=== PATIENT | female | born 1935 | race Caucasian/White ===

== ENCOUNTER → 2016-08-14 | Outpatient (REF) | payer MEDICARE | LOC: M LAB REF 17:09 | PROVIDERS: ATTEND Internal Medicine | DX: R42 Dizziness and giddiness (principal) ==

== ENCOUNTER → 2017-11-21 | Outpatient (REF) | payer MEDICARE ==
[2017-11-22 13:54] LABS: FERRITIN 177 NG/ML (8-252); IRON (FE) 102 UG/DL (50-170); PERCENT SATURATION 32.3 % (13.2-45.0); TOTAL IRON BINDING CAPACITY 316 UG/DL (250-450)
== END ==
LOC: M LAB REF 13:16
DX: D64.9 Anemia, unspecified (principal)
CPT/HCPCS: 83550

== ENCOUNTER → 2018-07-14 | Outpatient (REF) | payer MEDICARE | LOC: M LAB REF 16:44 | PROVIDERS: ATTEND Internal Medicine | DX: N39.0 Urinary tract infection, site not specified (principal) ==

== ENCOUNTER → 2020-08-12 | Outpatient (CLI) | payer MEDICARE ==
--- NOTE | 2020-08-12 15:08 | REP ---
INDICATION: SOB COMPARISON: 03/02/2019. TECHNIQUE: PA/Lateral FINDINGS: Moderate cardiomegaly is unchanged. The mediastinal silhouette is unchanged, with calcification and tortuosity of the thoracic aorta. There are scattered bilateral fibrotic changes which are stable. No definite superimposed acute infiltrate is seen. There is diffuse osteopenia. There are degenerative changes of the spine. There is a stable mild compression deformity of T5 and a stable moderate compression deformity of T8. There is new moderate compression deformity of the T6 vertebral body. IMPRESSION: Stable moderate cardiomegaly and chronic fibrotic changes. No definite superimposed acute infiltrate. There is a new moderate compression deformity of the T6 vertebral body compared to the prior study. <Electronically signed by Rubio Tidwell > 08/12/20 [id number]
== END ==
LOC: M WUC 14:35
PROVIDERS: ATTEND Internal Medicine
DX: R06.02 Shortness of breath (principal); I51.7 Cardiomegaly

== ENCOUNTER → 2020-12-07 | Outpatient (REF) | payer MEDICARE ==
[~2020-12-07] MED LIST: DILT240C83 PO; GABA-1171 PO; LEVO150T7 PO; MECL-86 PO; PARO5TAB PO; SPIR-10 PO; WARF-18 PO
== END ==
LOC: M LAB REF 09:53
PROVIDERS: ATTEND Internal Medicine
DX: D64.9 Anemia, unspecified (principal)

== ENCOUNTER → 2020-12-21 | Outpatient (CLI) | payer MEDICARE | LOC: M LABSMTC 09:09 | PROVIDERS: ATTEND Anesthesiology | DX: Z01.812 Encounter for preprocedural laboratory examination (principal) ==

== ENCOUNTER 2020-12-23 08:15 | Day surgery (SDC) | payer MEDICARE ==
[~2020-12-23] VITALS: Ht 160 cm; Wt 64.9 kg
[~2020-12-23 08:15] MED LIST changes: +BSS IRR 500ML/OMIDRIA 4ML IRR BAG (OR ONLY) As Ordered ONE; +BSS IRR 500ML/OMIDRIA 4ML IRR BAG (OR ONLY) IO ONE; +CEFUROXIME 1MG/0.1ML INTRACAMERAL INJ As Ordered ONE; +CEFUROXIME 1MG/0.1ML INTRACAMERAL INJ ICAM ONE; +DUOVISC (0.50ML VISCOAT/0.85ML PROVISC) OPHTH KIT As Ordered ONE; +LIDOCAINE 1% SDV 5ML VIAL As Ordered ONE; +MIDAZOLAM INJ 2MG/2ML VIAL (J2250 PER 1MG) As Ordered ONE; +OFLOXACIN 0.3 % (OCUFLOX) OPTH SOL 5ML OD SCH; +PHENYLEPHRINE 2.5% OPHTH SOL 2ML OD SCH; +PROPARACAINE 0.5% OPHTH SOL 15ML OD ONE; +TROPICAMIDE 1% OPHTH SOLN 2ML OD SCH; +fentaNYL 100 MCG/2 ML INJECTION (J3010) As Ordered ONE
[2020-12-23 12:45] VITALS: BP 136/65
--- NOTE | 2020-12-23 15:45 | ROOPDOC ---
[facility] Report Of Operation Report of Operation DATE OF PROCEDURE: 12/23/20 PREPROCEDURE DIAGNOSES: Mature cataract right eye. POSTPROCEDURE DIAGNOSES: Same. PROCEDURE PERFORMED: Phacoemulsification cataract extraction implantation intraocular lens right eye. SURGEON: Lauro Marx MD PLUMBING INSTALLER: None ANESTHESIA: MAC. ESTIMATED BLOOD LOSS: Approximately 0 cc mL. COMPLICATIONS: None. LENS: 12.0. diopters SPECIMENS REMOVED: None INDICATIONS: Patient experienced decreased vision associated with cataract formation. Slit-lamp examination confirmed the diagnosis. Informed consent was obtained for removal of the cataract and placement of intraocular lens. PROCEDURE NOTE: Patient was identified in the holding room and the operative eye was marked. Patient was wheeled spine the OR suite and positioned on the stretcher. The lids lashes and periocular face of the operative eye were prepped with 5% povidone iodine. The lashes were taped with a Tegaderm dressing. A speculum was placed in the operative eye. 1 mm side-port was created. 1% preservative-free lidocaine was injected. Viscoat was injected. A 2.6 mm stepped groove clear cornea incision was made temporally. A bent cystotome needle and Utrata forceps were used to fashion a continuous curvilinear capsulorhexis. BSS was used to hydrodissect. The lens was found to rotate freely. The lens was phacoemulsified using a divide and conquer technique. Residual cortex was removed with the I/A. Provisc was injected to expand the capsular bag. The lens was injected using the lens delivery system and positioned with a Sesar hook. Residual viscoelastic was removed with the I/A. BSS was used to hydrate the corneal wound. Antibiotic prophylaxis was injected. The speculum was removed from the eye. A shield was taped over the eye. The patient was sent in excellent condition to the recovery room with a shield. LAURO MARX M.D. Dec 23, 2020 15:45
[2021-01-24] MEDS ORDERED: CALC500T68 PO (10:50)
[2021-01-24] MEDS ORDERED: VITMTA PO (10:50)
== END 2020-12-23 12:58 | disposition home or self-care (01) ==
LOC: M SDC 08:15
PROVIDERS: ATTEND Ophthalmology
DX: H25.11 Age-related nuclear cataract, right eye (principal); I48.91 Unspecified atrial fibrillation; I10 Essential (primary) hypertension; E78.5 Hyperlipidemia, unspecified; E03.9 Hypothyroidism, unspecified; D64.9 Anemia, unspecified; F41.9 Anxiety disorder, unspecified; F32.9 Major depressive disorder, single episode, unspecified; Z79.01 Long term (current) use of anticoagulants; Z79.899 Other long term (current) drug therapy
CPT/HCPCS: 66984; J1097; J2250; J3010; V2632

== ENCOUNTER → 2021-01-30 | Outpatient (CLI) | payer MEDICARE ==
[~2021-01-30] MED LIST changes: -BSS IRR 500ML/OMIDRIA 4ML IRR BAG (OR ONLY) As Ordered ONE; -BSS IRR 500ML/OMIDRIA 4ML IRR BAG (OR ONLY) IO ONE; +CALC500T68 PO; -CEFUROXIME 1MG/0.1ML INTRACAMERAL INJ As Ordered ONE; -CEFUROXIME 1MG/0.1ML INTRACAMERAL INJ ICAM ONE; -DUOVISC (0.50ML VISCOAT/0.85ML PROVISC) OPHTH KIT As Ordered ONE; -LIDOCAINE 1% SDV 5ML VIAL As Ordered ONE; -MIDAZOLAM INJ 2MG/2ML VIAL (J2250 PER 1MG) As Ordered ONE; -OFLOXACIN 0.3 % (OCUFLOX) OPTH SOL 5ML OD SCH; -PHENYLEPHRINE 2.5% OPHTH SOL 2ML OD SCH; -PROPARACAINE 0.5% OPHTH SOL 15ML OD ONE; -TROPICAMIDE 1% OPHTH SOLN 2ML OD SCH; +VITMTA PO; -fentaNYL 100 MCG/2 ML INJECTION (J3010) As Ordered ONE
== END ==
LOC: M LABSMTC 11:43
PROVIDERS: ATTEND Ophthalmology
DX: Z01.812 Encounter for preprocedural laboratory examination (principal); Z20.822 Contact with and (suspected) exposure to COVID-19

== ENCOUNTER → 2021-01-31 | Outpatient (REF) | payer MEDICARE | LOC: M LAB REF 16:28 | PROVIDERS: ATTEND Internal Medicine | DX: R63.4 Abnormal weight loss (principal) ==

== ENCOUNTER 2021-02-03 08:27 | Day surgery (SDC) | payer MEDICARE ==
[~2021-02-03] VITALS: Ht 160 cm; Wt 62.5 kg
[~2021-02-03 08:27] MED LIST changes: +BSS IRR 500ML/OMIDRIA 4ML IRR BAG (OR ONLY) As Ordered ONE; +CEFUROXIME 1MG/0.1ML INTRACAMERAL INJ As Ordered ONE; +DUOVISC (0.50ML VISCOAT/0.85ML PROVISC) OPHTH KIT As Ordered ONE; +MIDAZOLAM INJ 2MG/2ML VIAL (J2250 PER 1MG) As Ordered ONE; +PHENYLEPHRINE 1.5%/LIDOCAINE 1% INTRAOCULAR 0.8ML SYRINGE As Ordered ONE; +PROPARACAINE 0.5% OPHTH SOL 15ML OS ONE; +fentaNYL 100 MCG/2 ML INJECTION (J3010) As Ordered ONE
[2021-02-03] MEDS: PHENYLEPHRINE 2.5% OPHTH SOL 2ML OS SCH ×3 (09:08→09:22)
[2021-02-03] MEDS: OFLOXACIN 0.3 % (OCUFLOX) OPTH SOL 5ML OS SCH ×3 (09:08→09:21)
[2021-02-03] MEDS: TROPICAMIDE 1% OPHTH SOLN 2ML OS SCH ×3 (09:08→09:22)
[2021-02-03] MEDS ORDERED: DUOVISC (0.50ML VISCOAT/0.85ML PROVISC) OPHTH KIT As Ordered ONE ×2 (10:35→10:37)
[2021-02-03 11:10] VITALS: BP 124/67
--- NOTE | 2021-02-03 13:56 | ROOPDOC ---
[facility] Report Of Operation Report of Operation PREPROCEDURE DIAGNOSES: Mature cataract left eye. POSTPROCEDURE DIAGNOSES: Same. PROCEDURE PERFORMED: Phacoemulsification cataract extraction implantation intraocular lens left eye. SURGEON: Lauro Marx MD INSURANCE FOLLOW UP REP: None ANESTHESIA: MAC. ESTIMATED BLOOD LOSS: Approximately 0 cc mL. COMPLICATIONS: None. LENS: 12.5. diopters SPECIMENS REMOVED: None INDICATIONS: Patient experienced decreased vision associated with cataract formation. Slit-lamp examination confirmed the diagnosis. Informed consent was obtained for removal of the cataract and placement of intraocular lens. PROCEDURE NOTE: Patient was identified in the holding room and the operative eye was marked. Patient was wheeled spine the OR suite and positioned on the stretcher. The lids lashes and periocular face of the operative eye were prepped with 5% povidone iodine. The lashes were taped with a Tegaderm dressing. A speculum was placed in the operative eye. 1 mm side-port was created. 1% preservative-free lidocaine was injected. Viscoat was injected. A 2.6 mm stepped groove clear cornea incision was made temporally. A bent cystotome needle and Utrata forceps were used to fashion a continuous cu rvilinear capsulorhexis. BSS was used to hydrodissect. The lens was found to rotate freely. The lens was phacoemulsified using a divide and conquer technique. Residual cortex was removed with the I/A. Provisc was injected to expand the capsular bag. The lens was injected using the lens delivery system and positioned with a Sesar hook. Residual viscoelastic was removed with the I/A. BSS was used to hydrate the corneal wound. Antibiotic prophylaxis was injected. The speculum was removed from the eye. A shield was taped over the eye. The patient was sent in excellent condition to the recovery room with a shield. LAURO MARX M.D. Feb 03, 2021 13:56
== END 2021-02-03 11:20 | disposition home or self-care (01) ==
LOC: M SDC 08:27
PROVIDERS: ATTEND Ophthalmology
DX: H25.12 Age-related nuclear cataract, left eye (principal); I10 Essential (primary) hypertension; I48.91 Unspecified atrial fibrillation; E03.9 Hypothyroidism, unspecified; F41.9 Anxiety disorder, unspecified; Z79.01 Long term (current) use of anticoagulants; Z79.899 Other long term (current) drug therapy
CPT/HCPCS: 66984; J1097; J2250; J3010; V2632

== ENCOUNTER → 2021-03-22 | Outpatient (CLI) | payer MEDICARE ==
[~2021-03-22] MED LIST changes: -BSS IRR 500ML/OMIDRIA 4ML IRR BAG (OR ONLY) As Ordered ONE; -CEFUROXIME 1MG/0.1ML INTRACAMERAL INJ As Ordered ONE; -DUOVISC (0.50ML VISCOAT/0.85ML PROVISC) OPHTH KIT As Ordered ONE; -MIDAZOLAM INJ 2MG/2ML VIAL (J2250 PER 1MG) As Ordered ONE; -PHENYLEPHRINE 1.5%/LIDOCAINE 1% INTRAOCULAR 0.8ML SYRINGE As Ordered ONE; -PROPARACAINE 0.5% OPHTH SOL 15ML OS ONE; -fentaNYL 100 MCG/2 ML INJECTION (J3010) As Ordered ONE
--- NOTE | 2021-03-22 16:59 | REP ---
INDICATION: SHORTNESS OF BREATH COMPARISON: 08/12/2020. TECHNIQUE: PA/Lateral FINDINGS: Lungs: Scattered interstitial fibrotic changes are stable. Heart: Moderate cardiomegaly is unchanged. Mediastinum: There is calcification and tortuosity of the thoracic aorta, the mediastinal silhouette is unchanged. Pleural angles: Unremarkable.. Bones and soft tissues: There is mild curvature of the thoracic spine convex to the left with osteopenia and diffuse degenerative changes. There are stable compression deformities of midthoracic vertebral bodies. IMPRESSION: Stable fibrotic changes and moderate cardiomegaly. No acute finding. <Electronically signed by Rubio Tidwell > 03/22/21 [id number]
== END ==
LOC: M WUC 15:33
PROVIDERS: ATTEND Internal Medicine
DX: R06.02 Shortness of breath (principal)

== ENCOUNTER → 2021-05-24 | Outpatient (CLI) | payer MEDICARE | LOC: M RAD 12:38 | PROVIDERS: ATTEND Internal Medicine | DX: R91.8 Other nonspecific abnormal finding of lung field (principal); I51.7 Cardiomegaly; K44.9 Diaphragmatic hernia without obstruction or gangrene; R06.00 Dyspnea, unspecified; I70.0 Atherosclerosis of aorta; S22.000A Wedge compression fracture of unspecified thoracic vertebra, initial encounter for closed fracture; X58.XXXA Exposure to other specified factors, initial encounter; Y92.9 Unspecified place or not applicable; Y93.9 Activity, unspecified; Y99.9 Unspecified external cause status ==

== ENCOUNTER → 2021-09-12 | Outpatient (REF) | payer MEDICARE ==
[2021-09-13 12:53] LABS: PERCENT SATURATION 23.6 % (13.2-45.0)
[2021-09-13 13:19] LABS: FOLATE 14.2 NG/ML
== END ==
LOC: M LAB REF 12:09
PROVIDERS: ATTEND Internal Medicine
DX: N18.9 Chronic kidney disease, unspecified (principal); D63.1 Anemia in chronic kidney disease

== ENCOUNTER → 2021-10-25 | Outpatient (CLI) | payer MEDICARE | LOC: M WUC 15:48 | PROVIDERS: ATTEND Internal Medicine | DX: M54.50 Low back pain, unspecified (principal) ==

== ENCOUNTER → 2022-08-28 | Outpatient (CLI) | payer MEDICARE | LOC: M WUC 10:21 | PROVIDERS: ATTEND Internal Medicine | DX: R06.09 Other forms of dyspnea (principal); I50.9 Heart failure, unspecified; I27.20 Pulmonary hypertension, unspecified ==

== ENCOUNTER → 2022-10-19 | Outpatient (CLI) | payer MEDICARE ==
[2022-10-19 16:36] LABS: BASO # 0.1 10^3/uL (0.0-0.2); BASO % 0.9 % (0.0-1.0); EOS # 0.1 10^3/uL (0.0-0.5); EOS % 1.7 % (0.0-3.0); HEMATOCRIT 36.5 % (36.0-47.0); HEMOGLOBIN 10.8 g/dl (12.0-15.5); LYMPH # 0.9 10^3/uL (1.5-5.0); LYMPH % 15.3 % (24.0-44.0); MEAN CORPUSCULAR HEMOGLOBIN 20.6 pg (27.0-33.0); MEAN CORPUSCULAR HGB CONC 29.6 g/dl (32.0-36.5); MEAN CORPUSCULAR VOLUME 69.5 fl (80.0-96.0); MONO # 0.5 10^3/uL (0.0-0.8); MONO % 8.1 % (2.0-8.0); NEUTROPHILS # 4.3 10^3/uL (1.5-8.5); NEUTROPHILS % 73.7 % (36.0-66.0); PLATELET COUNT, AUTOMATED 192 10^3/uL (150-450); RED BLOOD COUNT 5.25 10^6/uL (4.00-5.40); WHITE BLOOD COUNT 5.8 10^3/uL (4.0-10.0)
[2022-10-19 17:03] LABS: ALBUMIN 3.8 G/DL (3.2-5.2); BILIRUBIN,TOTAL 0.9 MG/DL (0.3-1.2); CREATININE FOR GFR 1.48 MG/DL (0.55-1.30); GLOMERULAR FILTRATION RATE 35.5 (>32); MAGNESIUM LEVEL 1.9 MG/DL (1.8-2.4); POTASSIUM SERUM 5.2 MMOL/L (3.5-5.1); TOTAL PROTEIN 8.2 G/DL (5.7-8.2)
[2022-10-19 17:05] LABS: THYROID STIMULATING HORMONE 0.429 uIU/ML (0.55-4.78)
== END ==
LOC: M LAB 15:43
PROVIDERS: ATTEND Internal Medicine Cardiovascular Disease
DX: I50.32 Chronic diastolic (congestive) heart failure (principal); I48.21 Permanent atrial fibrillation; I34.0 Nonrheumatic mitral (valve) insufficiency; I27.81 Cor pulmonale (chronic); I11.0 Hypertensive heart disease with heart failure; E03.9 Hypothyroidism, unspecified

== ENCOUNTER → 2022-10-22 | Outpatient (CLI) | payer MEDICARE | LOC: M CARPUL 09:42 | PROVIDERS: ATTEND Internal Medicine Cardiovascular Disease | DX: I50.32 Chronic diastolic (congestive) heart failure (principal) ==

== ENCOUNTER → 2022-11-01 | Outpatient (CLI) | payer MEDICARE | LOC: M SLEEP HO 11:38 | PROVIDERS: ATTEND Internal Medicine Cardiovascular Disease | DX: I27.81 Cor pulmonale (chronic) (principal); G47.9 Sleep disorder, unspecified ==

== ENCOUNTER → 2023-02-11 | Outpatient (CLI) | payer MEDICARE ==
[2023-02-11 19:08] LABS: BASO % 0.6 % (0.0-1.0); EOS # 0.1 10^3/uL (0.0-0.5); EOS % 1.8 % (0.0-3.0); HEMATOCRIT 32.5 % (36.0-47.0); HEMOGLOBIN 9.5 g/dl (12.0-15.5); LYMPH # 0.9 10^3/uL (1.5-5.0); LYMPH % 12.6 % (24.0-44.0); MEAN CORPUSCULAR HEMOGLOBIN 21.5 pg (27.0-33.0); MEAN CORPUSCULAR HGB CONC 29.2 g/dl (32.0-36.5); MEAN CORPUSCULAR VOLUME 73.5 fl (80.0-96.0); MONO # 0.6 10^3/uL (0.0-0.8); MONO % 9.3 % (2.0-8.0); NEUTROPHILS # 5.1 10^3/uL (1.5-8.5); NEUTROPHILS % 75.4 % (36.0-66.0); PLATELET COUNT, AUTOMATED 179 10^3/uL (150-450); RED BLOOD COUNT 4.42 10^6/uL (4.00-5.40); WHITE BLOOD COUNT 6.8 10^3/uL (4.0-10.0)
[2023-02-11 19:34] LABS: ALBUMIN 3.5 G/DL (3.2-5.2); CALCIUM LEVEL 9.1 MG/DL (8.3-10.6); CREATININE FOR GFR 1.24 MG/DL (0.55-1.30); GLOMERULAR FILTRATION RATE 43.6 (>32); MAGNESIUM LEVEL 1.9 MG/DL (1.8-2.4); PHOSPHORUS LEVEL 4.1 MG/DL (2.4-5.1); POTASSIUM SERUM 4.4 MMOL/L (3.5-5.1)
[2023-02-14 18:57] LABS: PERCENT SATURATION 17.6 % (13.2-45.0)
[2023-02-14 19:00] LABS: FERRITIN 38.8 NG/ML (7.3-270.7)
== END ==
LOC: M WUC 15:00
PROVIDERS: ATTEND Internal Medicine Cardiovascular Disease
DX: I50.32 Chronic diastolic (congestive) heart failure (principal); I48.21 Permanent atrial fibrillation

== ENCOUNTER → 2023-02-28 | Outpatient (CLI) | payer MEDICARE ==
[2023-02-28 16:54] LABS: ALBUMIN 3.5 G/DL (3.2-5.2); CALCIUM LEVEL 8.7 MG/DL (8.3-10.6); CREATININE FOR GFR 1.15 MG/DL (0.55-1.30); GLOMERULAR FILTRATION RATE 47.5 (>32); PHOSPHORUS LEVEL 4.3 MG/DL (2.4-5.1); POTASSIUM SERUM 5.1 MMOL/L (3.5-5.1)
== END ==
LOC: M WUC 10:25
PROVIDERS: ATTEND Internal Medicine Cardiovascular Disease
DX: I50.32 Chronic diastolic (congestive) heart failure (principal)

== ENCOUNTER → 2023-05-03 | Outpatient (REF) | payer MEDICARE ==
[2023-05-06 12:51] LABS: PERCENT SATURATION 12.6 % (13.2-45.0)
[2023-05-06 12:55] LABS: FERRITIN 39.2 NG/ML (7.3-270.7)
== END ==
LOC: M LAB REF 12:05
PROVIDERS: ATTEND Internal Medicine
DX: D50.9 Iron deficiency anemia, unspecified (principal); D63.1 Anemia in chronic kidney disease

== ENCOUNTER → 2023-05-13 | Outpatient (CLI) | payer MEDICARE | LOC: M WUC 13:36 | PROVIDERS: ATTEND Internal Medicine | DX: M25.551 Pain in right hip (principal) ==

== ENCOUNTER 2023-09-09 00:18 | Inpatient (IN) | payer MEDICARE ==
[~2023-09-09] VITALS: Ht 154.9 cm; Wt 51.6 kg
[2023-09-09 01:03] LABS: BASO % 0.6 % (0.0-1.0); EOS # 0.2 10^3/uL (0.0-0.5); HEMOGLOBIN 9.3 g/dl (12.0-15.5); LYMPH # 1.6 10^3/uL (1.5-5.0); LYMPH % 25.1 % (24.0-44.0); MEAN CORPUSCULAR HEMOGLOBIN 21.3 pg (27.0-33.0); MEAN CORPUSCULAR VOLUME 68.6 fl (80.0-96.0); MONO # 0.7 10^3/uL (0.0-0.8); NEUTROPHILS # 3.8 10^3/uL (1.5-8.5); NEUTROPHILS % 59.8 % (36.0-66.0); PLATELET COUNT, AUTOMATED 167 10^3/uL (150-450); RED BLOOD COUNT 4.37 10^6/uL (4.00-5.40); WHITE BLOOD COUNT 6.4 10^3/uL (4.0-10.0)
[2023-09-09 01:17] LABS: INR 2.57; PROTHROMBIN TIME 26.7 SECONDS (12.5-14.5)
[2023-09-09 01:27] LABS: CALCIUM LEVEL 8.4 MG/DL (8.3-10.6); CREATININE FOR GFR 1.46 MG/DL (0.55-1.30); GLOMERULAR FILTRATION RATE 36.1 (>32); POTASSIUM SERUM 5.1 MMOL/L (3.5-5.1)
[2023-09-09] MEDS: fentaNYL 100 MCG/2 ML INJECTION IV ONE (03:45)
[2023-09-09] MEDS: ACETAMINOPHEN *IV* 1,000 MG in IV 1 EA IV ONE (04:00)
[2023-09-09] MEDS ORDERED: THERTAB52 PO (04:04)
[2023-09-09] MEDS ORDERED: PARO20TA3 PO (04:07)
[2023-09-09] MEDS ORDERED: LEVO125T4 PO (04:08)
[2023-09-09] MEDS ORDERED: HOME MED LIST COMPLETE! XX SCH (04:10)
[2023-09-09] MEDS: MORPHINE 2 MG/ML 1ML VIAL IV PRN (06:48)
[2023-09-09] MEDS: LEVOTHYROXINE 125MCG TABLET (0.125MG) PO SCH (07:05)
[2023-09-09 08:05] LABS: BASO % 0.3 % (0.0-1.0); EOS % 0.3 % (0.0-3.0); HEMATOCRIT 26.8 % (36.0-47.0); HEMOGLOBIN 8.1 g/dl (12.0-15.5); LYMPH # 0.7 10^3/uL (1.5-5.0); LYMPH % 9.4 % (24.0-44.0); MEAN CORPUSCULAR HEMOGLOBIN 20.7 pg (27.0-33.0); MEAN CORPUSCULAR HGB CONC 30.2 g/dl (32.0-36.5); MEAN CORPUSCULAR VOLUME 68.5 fl (80.0-96.0); MONO # 0.6 10^3/uL (0.0-0.8); MONO % 8.9 % (2.0-8.0); NEUTROPHILS # 5.8 10^3/uL (1.5-8.5); NEUTROPHILS % 80.7 % (36.0-66.0); PLATELET COUNT, AUTOMATED 135 10^3/uL (150-450); RED BLOOD COUNT 3.91 10^6/uL (4.00-5.40); WHITE BLOOD COUNT 7.2 10^3/uL (4.0-10.0)
[2023-09-09 08:16] LABS: INR 2.39; PROTHROMBIN TIME 25.2 SECONDS (12.5-14.5)
[2023-09-09 08:19] LABS: CALCIUM LEVEL 8.5 MG/DL (8.3-10.6); CREATININE FOR GFR 1.31 MG/DL (0.55-1.30); GLOMERULAR FILTRATION RATE 40.9 (>32); POTASSIUM SERUM 5.3 MMOL/L (3.5-5.1)
[2023-09-09 08:31] LABS: PROCALCITONIN 0.12 ng/ml
[2023-09-09] MEDS: CALCIUM CARBONATE 500 MG CHEW U/D PO SCH (09:00)
[2023-09-09 09:30] VITALS: BP 142/71; TEMP 98.1; O2SAT 95
[2023-09-09] MEDS ORDERED: PHYTONADIONE 2.5 MG **1/2 TAB PO ONE (11:00)
[2023-09-09] MEDS: PARoxetine 20MG TABLET PO SCH (11:56)
[2023-09-09] MEDS: PHYTONADIONE 5 MG TAB PO ONE (11:56)
[2023-09-09] MEDS: MULTIVITAMINS/MINERALS THERAP 1 TAB PO SCH (11:56)
[2023-09-09] MEDS: dilTIAZem 120MG **CD** CAPSULE PO SCH (12:07)
[2023-09-09 12:49] LABS: HEMATOCRIT 26.9 % (36.0-47.0); HEMOGLOBIN 8.1 g/dl (12.0-15.5); MEAN CORPUSCULAR HEMOGLOBIN 20.9 pg (27.0-33.0); MEAN CORPUSCULAR HGB CONC 30.1 g/dl (32.0-36.5); MEAN CORPUSCULAR VOLUME 69.3 fl (80.0-96.0); PLATELET COUNT, AUTOMATED 135 10^3/uL (150-450); RED BLOOD COUNT 3.88 10^6/uL (4.00-5.40); WHITE BLOOD COUNT 6.4 10^3/uL (4.0-10.0)
[2023-09-09] MEDS: PATIROMER SORBITEX CALCIUM 8.4 GM POWDER PACKET (VELTASSA) PO ONE (12:52)
[2023-09-09 13:21] LABS: FERRITIN 119.9 NG/ML (7.3-270.7)
[2023-09-09 13:22] LABS: FOLATE 13.47 NG/ML (>5.4)
[2023-09-09 14:00] VITALS: BP 138/71; TEMP 98.1; O2SAT 97
[2023-09-09] MEDS: ACETAMINOPHEN 500 MG TAB PO PRN (15:27)
[2023-09-09 21:10] VITALS: BP 135/72; TEMP 98.2; O2SAT 97
[2023-09-10] VITALS (12 sets, daily range): BP systolic 110–140; BP diastolic 64–98; TEMP 97.5–99; O2SAT 92–98
[2023-09-10 07:44] LABS: HEMATOCRIT 25.1 % (36.0-47.0); HEMOGLOBIN 7.7 g/dl (12.0-15.5); MEAN CORPUSCULAR HEMOGLOBIN 21.1 pg (27.0-33.0); MEAN CORPUSCULAR HGB CONC 30.7 g/dl (32.0-36.5); MEAN CORPUSCULAR VOLUME 68.8 fl (80.0-96.0); PLATELET COUNT, AUTOMATED 125 10^3/uL (150-450); RED BLOOD COUNT 3.65 10^6/uL (4.00-5.40); WHITE BLOOD COUNT 7.1 10^3/uL (4.0-10.0)
[2023-09-10 07:55] LABS: INR 1.64; PROTHROMBIN TIME 18.8 SECONDS (12.5-14.5)
[2023-09-10 08:02] LABS: CALCIUM LEVEL 8.7 MG/DL (8.3-10.6); CREATININE FOR GFR 1.04 MG/DL (0.55-1.30); GLOMERULAR FILTRATION RATE 53.4 (>32); MAGNESIUM LEVEL 1.4 MG/DL (1.8-2.4); POTASSIUM SERUM 4.5 MMOL/L (3.5-5.1)
[2023-09-10] MEDS: PHYTONADIONE 2.5 MG **1/2 TAB PO ONE (11:51)
[2023-09-10 14:28] LABS: HEMATOCRIT 22.9 % (36.0-47.0); HEMOGLOBIN 7.2 g/dl (12.0-15.5)
[2023-09-10 14:49] LABS: INR 1.36; PROTHROMBIN TIME 16.4 SECONDS (12.5-14.5)
[2023-09-10] MEDS: MAG SULF 1GM/100ML (MAG RUN) 1 GM in IV 1 EA IV ONE (18:00)
[2023-09-10 20:25] LABS: HEMATOCRIT 25.5 % (36.0-47.0)
[2023-09-11] VITALS (11 sets, daily range): BP systolic 118–155; BP diastolic 61–80; TEMP 97.5–98.1; O2SAT 2–99
[2023-09-11 00:27] LABS: HEMOGLOBIN 7.9 g/dl (12.0-15.5)
[2023-09-11] MEDS: D5W/0.45% SODIUM CHLORIDE 1,000 ML IV SCH (05:21)
[2023-09-11 06:00] LABS: BASO % 0.3 % (0.0-1.0); EOS # 0.2 10^3/uL (0.0-0.5); LYMPH # 1.1 10^3/uL (1.5-5.0); MEAN CORPUSCULAR HGB CONC 31.4 g/dl (32.0-36.5); MEAN CORPUSCULAR VOLUME 73.1 fl (80.0-96.0); MONO # 0.8 10^3/uL (0.0-0.8); MONO % 10.7 % (2.0-8.0); NEUTROPHILS # 5.7 10^3/uL (1.5-8.5); NEUTROPHILS % 72.6 % (36.0-66.0); PLATELET COUNT, AUTOMATED 110 10^3/uL (150-450); RED BLOOD COUNT 4.31 10^6/uL (4.00-5.40); WHITE BLOOD COUNT 7.8 10^3/uL (4.0-10.0)
[2023-09-11 06:08] LABS: INR 1.21; PROTHROMBIN TIME 14.9 SECONDS (12.5-14.5)
[2023-09-11 06:12] LABS: HEMATOCRIT 31.5 % (36.0-47.0); HEMOGLOBIN 9.9 g/dl (12.0-15.5)
[2023-09-11 06:16] LABS: CALCIUM LEVEL 8.5 MG/DL (8.3-10.6); CREATININE FOR GFR 1.06 MG/DL (0.55-1.30); GLOMERULAR FILTRATION RATE 52.2 (>32); POTASSIUM SERUM 4.6 MMOL/L (3.5-5.1)
[2023-09-11 12:37] LABS: HEMATOCRIT 31.1 % (36.0-47.0); HEMOGLOBIN 9.9 g/dl (12.0-15.5)
[2023-09-11] MEDS: ceFAZolin 2 GM/D5W 50 ML IV BAG As Ordered ONE (18:27)
[2023-09-11] MEDS ORDERED: ONDANSETRON 4MG 2ML VIAL IV PRN (19:20)
[2023-09-11] MEDS: LR 1,000 ML IV SCH (19:20)
[2023-09-11] MEDS ORDERED: HYDROMORPHONE HCL 0.5 MG/ 0.5 ML SYRINGE IV PRN (19:20)
[2023-09-11] MEDS ORDERED: fentaNYL 100 MCG/2 ML INJECTION IV PRN (19:20)
[2023-09-11] MEDS ORDERED: ACETAMINOPHEN 1000MG 100ML IV BAG As Ordered ONE (20:43)
[2023-09-11] MEDS ORDERED: ONDANSETRON 4MG 2ML VIAL As Ordered ONE (20:43)
[2023-09-11] MEDS ORDERED: KETAMINE HCL 200MG/20ML VIAL As Ordered ONE (20:43)
[2023-09-11] MEDS ORDERED: propofoL 200 MG/20 ML VIAL As Ordered ONE (20:43)
[2023-09-11] MEDS ORDERED: MIDAZOLAM INJ 2MG/2ML VIAL As Ordered ONE (20:43)
[2023-09-11] MEDS ORDERED: LIDOCAINE 2% 100MG/5ML SDV (FOR ANES.) As Ordered ONE (20:43)
[2023-09-11 23:44] LABS: HEMOGLOBIN 9.6 g/dl (12.0-15.5)
[2023-09-12] VITALS (7 sets, daily range): BP systolic 124–147; BP diastolic 69–81; TEMP 97.3–98.2; O2SAT 93–99
[2023-09-12] MEDS: MORPHINE 2 MG/ML 1ML VIAL IV PRN (00:34)
[2023-09-12] MEDS: ceFAZolin SOD 2 GM in IV 1 EA IV SCH (03:01)
[2023-09-12 06:49] LABS: INR 1.19; PROTHROMBIN TIME 14.8 SECONDS (12.5-14.5)
[2023-09-12] MEDS: traMADol 50 MG TAB PO PRN (09:27)
[2023-09-12] MEDS: MECLIZINE 25 MG TABLET PO PRN (10:16)
[2023-09-12] MEDS: DIGOXIN 0.125 MG TAB PO SCH (10:17)
[2023-09-12] MEDS ORDERED: TRAM50TA2 PO (12:34)
[2023-09-12] MEDS ORDERED: ACET-683 PO (12:34)
[2023-09-12] MEDS: ACETAMINOPHEN 500 MG TAB PO SCH (13:10)
[2023-09-12] MEDS ORDERED: WARFARIN SOD 5MG TAB PO SCH (17:00)
[2023-09-12] MEDS ORDERED: WARFARIN SOD 2.5MG TAB PO SCH (17:00)
[2023-09-13] MEDS ORDERED: WARFARIN SOD 2.5MG TAB PO SCH (17:00)
== END 2023-09-12 14:30 | DRG 481 ==
LOC: M ED 00:18 → M ED INP 03:34 → M MS5PR 09:25
PROVIDERS: ADMIT Internal Medicine; ATTEND General Practice
PROC: 30233K1 Transfusion of Nonautologous Frozen Plasma into Peripheral Vein, Percutaneous Approach (ICD-10-PCS; 2023-09-10)
PROC: 30233N1 Transfusion of Nonautologous Red Blood Cells into Peripheral Vein, Percutaneous Approach (ICD-10-PCS; 2023-09-11)
PROC: 0QS736Z Reposition Left Upper Femur with Intramedullary Internal Fixation Device, Percutaneous Approach (ICD-10-PCS; principal; 2023-09-11 15:30)
DX: S72.142A Displaced intertrochanteric fracture of left femur, initial encounter for closed fracture (principal); I50.32 Chronic diastolic (congestive) heart failure; I13.0 Hypertensive heart and chronic kidney disease with heart failure and stage 1 through stage 4 chronic kidney disease, or unspecified chronic kidney disease; J96.11 Chronic respiratory failure with hypoxia; I48.11 Longstanding persistent atrial fibrillation; D68.32 Hemorrhagic disorder due to extrinsic circulating anticoagulants; D62 Acute posthemorrhagic anemia; J45.909 Unspecified asthma, uncomplicated; E11.22 Type 2 diabetes mellitus with diabetic chronic kidney disease; Z99.81 Dependence on supplemental oxygen; E87.5 Hyperkalemia; N18.30 Chronic kidney disease, stage 3 unspecified; G47.33 Obstructive sleep apnea (adult) (pediatric); E03.9 Hypothyroidism, unspecified; S00.03XA Contusion of scalp, initial encounter; Z79.01 Long term (current) use of anticoagulants; W18.30XA Fall on same level, unspecified, initial encounter; Y92.009 Unspecified place in unspecified non-institutional (private) residence as the place of occurrence of the external cause; Z79.899 Other long term (current) drug therapy; Z98.49 Cataract extraction status, unspecified eye; F32.A Depression, unspecified

== ENCOUNTER 2023-09-12 12:50 | Inpatient (IN) | payer MEDICARE ==
[~2023-09-12 12:50] MED LIST changes: +ACET-683 PO; +LEVO125T4 PO; +PARO20TA3 PO; +THERTAB52 PO; +TRAM50TA2 PO
[2023-09-12] MEDS ORDERED: MIRALAX *UNIT DOSE* 17GM PACKET PO PRN (14:00)
[2023-09-12] MEDS ORDERED: CALCIUM CARBONATE 500 MG CHEW U/D PO PRN (14:00)
[2023-09-12] MEDS ORDERED: MECLIZINE 25 MG TABLET PO PRN (14:00)
[2023-09-12 15:00] VITALS: BP 158/74; TEMP 97.6; O2SAT 90
[2023-09-12 16:11] LABS: INR 1.18; PROTHROMBIN TIME 14.7 SECONDS (12.5-14.5)
[2023-09-12] MEDS: WARFARIN SOD 2.5MG TAB PO SCH (17:23)
[2023-09-12] MEDS: ACETAMINOPHEN 500 MG TAB PO SCH (17:23)
[2023-09-12 20:00] VITALS: BP 114/56; TEMP 98.1; O2SAT 97
[2023-09-12] MEDS: SENNA 8.6 MG TAB (SENOKOT) PO SCH (20:35)
[2023-09-13] MEDS: LEVOTHYROXINE 125MCG TABLET (0.125MG) PO SCH (05:44)
[2023-09-13 06:00] VITALS: BP 117/55; TEMP 97.2; O2SAT 97
[2023-09-13 07:45] LABS: HEMATOCRIT 25.5 % (36.0-47.0); HEMOGLOBIN 7.8 g/dl (12.0-15.5)
[2023-09-13] MEDS: MULTIVITAMINS/MINERALS THERAP 1 TAB PO SCH (08:39)
[2023-09-13] MEDS: PARoxetine 20MG TABLET PO SCH (08:39)
[2023-09-13] MEDS: dilTIAZem 120MG **CD** CAPSULE PO SCH (08:40)
[2023-09-13 11:30] LABS: HEMATOCRIT 27.6 % (36.0-47.0); HEMOGLOBIN 8.5 g/dl (12.0-15.5)
[2023-09-13 14:00] VITALS: BP 114/50; TEMP 98; O2SAT 95
[2023-09-13] MEDS ORDERED: WARFARIN SOD 2.5MG TAB PO SCH (17:00)
[2023-09-13] MEDS: WARFARIN SOD 5MG TAB PO ONE (17:21)
[2023-09-13 20:04] VITALS: BP 132/63; TEMP 98.2; O2SAT 94
[2023-09-14] MEDS: traMADol 50 MG TAB PO PRN (06:00)
[2023-09-14 06:22] VITALS: BP 123/60; TEMP 97.5; O2SAT 97
[2023-09-14 06:59] LABS: HEMATOCRIT 24.2 % (36.0-47.0); HEMOGLOBIN 7.6 g/dl (12.0-15.5); MEAN CORPUSCULAR HEMOGLOBIN 23.1 pg (27.0-33.0); MEAN CORPUSCULAR HGB CONC 31.4 g/dl (32.0-36.5); MEAN CORPUSCULAR VOLUME 73.6 fl (80.0-96.0); PLATELET COUNT, AUTOMATED 129 10^3/uL (150-450); RED BLOOD COUNT 3.29 10^6/uL (4.00-5.40); WHITE BLOOD COUNT 6.6 10^3/uL (4.0-10.0)
[2023-09-14 07:08] LABS: INR 1.31; PROTHROMBIN TIME 15.9 SECONDS (12.5-14.5)
[2023-09-14 07:17] LABS: CREATININE FOR GFR 1.26 MG/DL (0.55-1.30); GLOMERULAR FILTRATION RATE 42.8 (>32); POTASSIUM SERUM 4.5 MMOL/L (3.5-5.1)
[2023-09-14 07:44] LABS: HEMOGLOBIN A1c 5.7 % (4.0-6.0)
[2023-09-14 14:00] VITALS: BP 125/59; TEMP 97.8; O2SAT 99
[2023-09-14] MEDS: WARFARIN SOD 5MG TAB PO ONE (16:46)
[2023-09-14 20:00] VITALS: BP 122/61; TEMP 97.6; O2SAT 99
[2023-09-15 06:00] VITALS: BP 124/86; TEMP 97.2; O2SAT 96
[2023-09-15 06:36] LABS: HEMATOCRIT 25.5 % (36.0-47.0); MEAN CORPUSCULAR HEMOGLOBIN 23.1 pg (27.0-33.0); MEAN CORPUSCULAR HGB CONC 31.4 g/dl (32.0-36.5); MEAN CORPUSCULAR VOLUME 73.5 fl (80.0-96.0); PLATELET COUNT, AUTOMATED 169 10^3/uL (150-450); RED BLOOD COUNT 3.47 10^6/uL (4.00-5.40); WHITE BLOOD COUNT 7.4 10^3/uL (4.0-10.0)
[2023-09-15 06:50] LABS: INR 1.45; PROTHROMBIN TIME 17.1 SECONDS (12.5-14.5)
[2023-09-15 08:09] VITALS: BP 122/58
[2023-09-15] MEDS: traMADol 50 MG TAB PO ONE (08:11)
[2023-09-15 14:00] VITALS: BP 131/58; TEMP 97.7; O2SAT 99
[2023-09-15] MEDS: WARFARIN SOD 5MG TAB PO ONE (16:58)
[2023-09-15 20:00] VITALS: BP 124/60; TEMP 97; O2SAT 99
[2023-09-16 06:00] VITALS: BP 143/67; TEMP 97.6; O2SAT 95
[2023-09-16 06:48] LABS: HEMATOCRIT 25.6 % (36.0-47.0); HEMOGLOBIN 7.9 g/dl (12.0-15.5); MEAN CORPUSCULAR HEMOGLOBIN 23.2 pg (27.0-33.0); MEAN CORPUSCULAR HGB CONC 30.9 g/dl (32.0-36.5); MEAN CORPUSCULAR VOLUME 75.1 fl (80.0-96.0); PLATELET COUNT, AUTOMATED 207 10^3/uL (150-450); RED BLOOD COUNT 3.41 10^6/uL (4.00-5.40); WHITE BLOOD COUNT 6.2 10^3/uL (4.0-10.0)
[2023-09-16 07:02] LABS: INR 1.84; PROTHROMBIN TIME 20.6 SECONDS (12.5-14.5)
[2023-09-16 12:28] LABS: ALBUMIN 2.7 G/DL (3.2-5.2); BILIRUBIN,TOTAL 1.5 MG/DL (0.3-1.2); CALCIUM LEVEL 8.5 MG/DL (8.3-10.6); CREATININE FOR GFR 1.11 MG/DL (0.55-1.30); GLOMERULAR FILTRATION RATE 49.5 (>32); POTASSIUM SERUM 4.9 MMOL/L (3.5-5.1); TOTAL PROTEIN 6.6 G/DL (5.7-8.2)
[2023-09-16 14:00] VITALS: BP 134/64; TEMP 97.5; O2SAT 95
[2023-09-16] MEDS: WARFARIN SOD 5MG TAB PO SCH (17:19)
[2023-09-16 20:00] VITALS: BP 140/65; TEMP 97.5; O2SAT 99
[2023-09-17 06:00] VITALS: BP 128/63; TEMP 98.2; O2SAT 100
[2023-09-17 06:10] LABS: HEMATOCRIT 23.8 % (36.0-47.0); HEMOGLOBIN 7.4 g/dl (12.0-15.5); MEAN CORPUSCULAR HEMOGLOBIN 23.3 pg (27.0-33.0); MEAN CORPUSCULAR HGB CONC 31.1 g/dl (32.0-36.5); MEAN CORPUSCULAR VOLUME 74.8 fl (80.0-96.0); PLATELET COUNT, AUTOMATED 212 10^3/uL (150-450); RED BLOOD COUNT 3.18 10^6/uL (4.00-5.40); WHITE BLOOD COUNT 6.1 10^3/uL (4.0-10.0)
[2023-09-17 06:20] LABS: INR 2.29; PROTHROMBIN TIME 24.4 SECONDS (12.5-14.5)
[2023-09-17 06:41] LABS: CALCIUM LEVEL 8.4 MG/DL (8.3-10.6); CREATININE FOR GFR 1.13 MG/DL (0.55-1.30); GLOMERULAR FILTRATION RATE 48.5 (>32); POTASSIUM SERUM 4.7 MMOL/L (3.5-5.1)
[2023-09-17 06:42] LABS: THYROID STIMULATING HORMONE 2.377 uIU/ML (0.55-4.78); TOTAL 25(OH) VITAMIN D 34.2 NG/ML (20.0-100.0)
[2023-09-17 14:00] VITALS: BP 139/67; TEMP 98.1; O2SAT 99
[2023-09-17] MEDS: WARFARIN SOD 2.5MG TAB PO SCH (16:56)
[2023-09-17 20:00] VITALS: BP 124/60; TEMP 96.7; O2SAT 95
[2023-09-18 06:00] VITALS: BP 144/63; TEMP 97.2; O2SAT 96
[2023-09-18 07:22] LABS: HEMATOCRIT 26.2 % (36.0-47.0); HEMOGLOBIN 8.1 g/dl (12.0-15.5); MEAN CORPUSCULAR HEMOGLOBIN 23.3 pg (27.0-33.0); MEAN CORPUSCULAR HGB CONC 30.9 g/dl (32.0-36.5); MEAN CORPUSCULAR VOLUME 75.3 fl (80.0-96.0); PLATELET COUNT, AUTOMATED 254 10^3/uL (150-450); RED BLOOD COUNT 3.48 10^6/uL (4.00-5.40); WHITE BLOOD COUNT 7.5 10^3/uL (4.0-10.0)
[2023-09-18 07:31] LABS: INR 2.2; PROTHROMBIN TIME 23.7 SECONDS (12.5-14.5)
[2023-09-18 14:00] VITALS: BP 129/61; TEMP 97.3; O2SAT 94
[2023-09-18] MEDS: WARFARIN PO SCH (16:09)
[2023-09-18 19:47] VITALS: BP 140/63; TEMP 98; O2SAT 97
[2023-09-19 05:25] VITALS: BP 140/70; TEMP 97.3; O2SAT 96
[2023-09-19 05:58] LABS: HEMATOCRIT 25.3 % (36.0-47.0); HEMOGLOBIN 7.7 g/dl (12.0-15.5); MEAN CORPUSCULAR HEMOGLOBIN 22.9 pg (27.0-33.0); MEAN CORPUSCULAR HGB CONC 30.4 g/dl (32.0-36.5); MEAN CORPUSCULAR VOLUME 75.3 fl (80.0-96.0); PLATELET COUNT, AUTOMATED 255 10^3/uL (150-450); RED BLOOD COUNT 3.36 10^6/uL (4.00-5.40); WHITE BLOOD COUNT 6.2 10^3/uL (4.0-10.0)
[2023-09-19 06:10] LABS: INR 2.43; PROTHROMBIN TIME 25.6 SECONDS (12.5-14.5)
[2023-09-19 06:26] LABS: CALCIUM LEVEL 8.2 MG/DL (8.3-10.6); CREATININE FOR GFR 0.98 MG/DL (0.55-1.30); GLOMERULAR FILTRATION RATE 57.2 (>32); POTASSIUM SERUM 4.7 MMOL/L (3.5-5.1)
[2023-09-19] MEDS: ADVAIR HFA 115/21MCG INHALER INH SCH (08:00)
[2023-09-19] MEDS ORDERED: ADVAIR HFA 115/21MCG INHALER INH SCH (09:00)
[2023-09-19] MEDS ORDERED: ALBUTEROL 90 MCG/ACT 8GM HFA INHALER INH PRN (11:55)
[2023-09-19] MEDS: SPIRONOLACTONE 25 MG TAB PO SCH (12:05)
[2023-09-19 12:44] LABS: INR 2.53; PROTHROMBIN TIME 26.3 SECONDS (12.5-14.5)
[2023-09-19 12:49] VITALS: O2SAT 98
[2023-09-19 14:00] VITALS: BP 146/71; TEMP 97.2; O2SAT 90
[2023-09-19] MEDS: BISACODYL 5MG TAB PO PRN (14:03)
[2023-09-19 20:01] VITALS: BP 135/65; TEMP 98.2; O2SAT 98
[2023-09-20 06:02] VITALS: BP 131/64; TEMP 97.2; O2SAT 96
[2023-09-20 07:25] LABS: HEMOGLOBIN 7.9 g/dl (12.0-15.5); MEAN CORPUSCULAR HGB CONC 30.4 g/dl (32.0-36.5); MEAN CORPUSCULAR VOLUME 75.6 fl (80.0-96.0); PLATELET COUNT, AUTOMATED 293 10^3/uL (150-450); RED BLOOD COUNT 3.44 10^6/uL (4.00-5.40); WHITE BLOOD COUNT 8.2 10^3/uL (4.0-10.0)
[2023-09-20 08:22] VITALS: BP 140/64
[2023-09-20] MEDS ORDERED: ADVA115A INH (10:57)
[2023-09-20] MEDS ORDERED: VENTAER INH (10:57)
== END 2023-09-20 12:43 | disposition home health service (06) | DRG 560 ==
LOC: M PM&R 13:35
PROVIDERS: ADMIT Student in an Organized Health Care Education/Training Program; ATTEND Student in an Organized Health Care Education/Training Program
DX: S72.142D Displaced intertrochanteric fracture of left femur, subsequent encounter for closed fracture with routine healing (principal); J96.11 Chronic respiratory failure with hypoxia; I50.32 Chronic diastolic (congestive) heart failure; I13.0 Hypertensive heart and chronic kidney disease with heart failure and stage 1 through stage 4 chronic kidney disease, or unspecified chronic kidney disease; E87.1 Hypo-osmolality and hyponatremia; I48.91 Unspecified atrial fibrillation; Z74.1 Need for assistance with personal care; Z74.09 Other reduced mobility; M81.0 Age-related osteoporosis without current pathological fracture; E03.9 Hypothyroidism, unspecified; J45.909 Unspecified asthma, uncomplicated; G47.33 Obstructive sleep apnea (adult) (pediatric); N18.9 Chronic kidney disease, unspecified; G89.11 Acute pain due to trauma; I95.1 Orthostatic hypotension; R91.8 Other nonspecific abnormal finding of lung field; E11.22 Type 2 diabetes mellitus with diabetic chronic kidney disease; S00.03XD Contusion of scalp, subsequent encounter; F32.A Depression, unspecified; Z79.01 Long term (current) use of anticoagulants; Z79.890 Hormone replacement therapy; Z79.899 Other long term (current) drug therapy; Z99.81 Dependence on supplemental oxygen; Z90.49 Acquired absence of other specified parts of digestive tract; Z98.42 Cataract extraction status, left eye

== ENCOUNTER → 2023-10-01 | Outpatient (REF) | payer MEDICARE ==
[~2023-10-01] MED LIST changes: +ADVA115A INH; +VENTAER INH
[2023-10-01 19:09] LABS: PERCENT SATURATION 22.4 % (13.2-45.0)
[2023-10-01 19:12] LABS: FERRITIN 218.9 NG/ML (7.3-270.7)
== END ==
LOC: M LAB REF 17:42
PROVIDERS: ATTEND Internal Medicine
DX: N18.9 Chronic kidney disease, unspecified (principal); D63.1 Anemia in chronic kidney disease

== ENCOUNTER → 2023-10-02 | Outpatient (CLI) | payer MEDICARE | LOC: M SOG 07:53 | PROVIDERS: ATTEND Orthopaedic Surgery | DX: S72.142D Displaced intertrochanteric fracture of left femur, subsequent encounter for closed fracture with routine healing (principal); Z47.89 Encounter for other orthopedic aftercare ==

== ENCOUNTER → 2023-10-30 | Outpatient (CLI) | payer MEDICARE | LOC: M SOG 07:55 | PROVIDERS: ATTEND Orthopaedic Surgery | DX: Z47.89 Encounter for other orthopedic aftercare (principal); M16.0 Bilateral primary osteoarthritis of hip ==

== ENCOUNTER → 2023-12-09 | Outpatient (CLI) | payer MEDICARE | LOC: M SOG 09:21 | PROVIDERS: ATTEND Physician Assistant | DX: T84.195A Other mechanical complication of internal fixation device of left femur, initial encounter (principal) ==

== ENCOUNTER → 2023-12-12 | Outpatient (CLI) | payer MEDICARE ==
[~2023-12-12] MED LIST changes: +BUDE10.22 INH
[2023-12-12 13:15] LABS: BASO # 0.1 10^3/uL (0.0-0.2); BASO % 0.7 % (0.0-1.0); EOS # 0.2 10^3/uL (0.0-0.5); EOS % 2.4 % (0.0-3.0); HEMATOCRIT 32.4 % (36.0-47.0); HEMOGLOBIN 9.9 g/dl (12.0-15.5); LYMPH % 14.4 % (24.0-44.0); MEAN CORPUSCULAR HGB CONC 30.6 g/dl (32.0-36.5); MEAN CORPUSCULAR VOLUME 71.8 fl (80.0-96.0); MONO # 0.6 10^3/uL (0.0-0.8); MONO % 9.3 % (2.0-8.0); NEUTROPHILS # 4.9 10^3/uL (1.5-8.5); NEUTROPHILS % 72.8 % (36.0-66.0); PLATELET COUNT, AUTOMATED 257 10^3/uL (150-450); RED BLOOD COUNT 4.51 10^6/uL (4.00-5.40); WHITE BLOOD COUNT 6.7 10^3/uL (4.0-10.0)
[2023-12-12 13:31] LABS: INR 2.8; PROTHROMBIN TIME 28.5 SECONDS (12.5-14.5)
[2023-12-12 13:33] LABS: C REACTIVE PROTEIN QUANTITATIV 5.5 MG/DL (<1.0); HEMOGLOBIN A1c 5.4 % (4.0-6.0)
[2023-12-12 13:34] LABS: ERYTHROCYTE SEDIMENTATION RATE > 130 mm/hr (0-30)
[2023-12-12 13:35] LABS: ALBUMIN 3.3 G/DL (3.2-5.2); BILIRUBIN,TOTAL 0.6 MG/DL (0.3-1.2); CALCIUM LEVEL 9.1 MG/DL (8.3-10.6); CREATININE FOR GFR 1.35 MG/DL (0.55-1.30); GLOMERULAR FILTRATION RATE 39.4 (>32); POTASSIUM SERUM 5.6 MMOL/L (3.5-5.1); TOTAL PROTEIN 8.1 G/DL (5.7-8.2)
[2023-12-12 13:37] LABS: TOTAL 25(OH) VITAMIN D 39.4 NG/ML (20.0-100.0)
== END ==
LOC: M PLALAB 09:55
PROVIDERS: ATTEND Orthopaedic Surgery
DX: T84.9XXA Unspecified complication of internal orthopedic prosthetic device, implant and graft, initial encounter (principal); Z79.899 Other long term (current) drug therapy; Z79.01 Long term (current) use of anticoagulants

== ENCOUNTER 2023-12-13 11:11 | Emergency (ER) | payer MEDICARE ==
[~2023-12-13 11:11] MED LIST changes: -BUDE10.22 INH
[2023-12-13 15:55] VITALS: BP 140/78; TEMP 98; O2SAT 95
== END 2023-12-13 15:55 | disposition home or self-care (01) ==
LOC: EDBD 11:11 → M ED 11:11
DX: S00.03XA Contusion of scalp, initial encounter (principal); S40.011A Contusion of right shoulder, initial encounter; M25.011 Hemarthrosis, right shoulder; W22.09XA Striking against other stationary object, initial encounter; E11.9 Type 2 diabetes mellitus without complications; I10 Essential (primary) hypertension; N18.30 Chronic kidney disease, stage 3 unspecified; D63.1 Anemia in chronic kidney disease; G47.33 Obstructive sleep apnea (adult) (pediatric); E03.9 Hypothyroidism, unspecified; M54.50 Low back pain, unspecified; Z86.79 Personal history of other diseases of the circulatory system; Z79.01 Long term (current) use of anticoagulants; Z79.4 Long term (current) use of insulin; Y92.003 Bedroom of unspecified non-institutional (private) residence as the place of occurrence of the external cause; Y93.89 Activity, other specified; Y99.9 Unspecified external cause status; Z79.899 Other long term (current) drug therapy; M85.811 Other specified disorders of bone density and structure, right shoulder; M50.321 Other cervical disc degeneration at C4-C5 level; M46.92 Unspecified inflammatory spondylopathy, cervical region

== ENCOUNTER 2023-12-19 08:59 | Inpatient (IN) | payer MEDICARE ==
[~2023-12-19] VITALS: Ht 154.9 cm; Wt 48.2 kg
[2023-12-19 14:55] VITALS: BP 146/73; TEMP 97.7; O2SAT 93
[2023-12-19 16:28] LABS: BASO % 0.6 % (0.0-1.0); EOS # 0.1 10^3/uL (0.0-0.5); EOS % 1.8 % (0.0-3.0); HEMATOCRIT 31.7 % (36.0-47.0); HEMOGLOBIN 9.9 g/dl (12.0-15.5); LYMPH # 0.7 10^3/uL (1.5-5.0); LYMPH % 10.5 % (24.0-44.0); MEAN CORPUSCULAR HEMOGLOBIN 21.9 pg (27.0-33.0); MEAN CORPUSCULAR HGB CONC 31.2 g/dl (32.0-36.5); MEAN CORPUSCULAR VOLUME 70.1 fl (80.0-96.0); MONO # 0.6 10^3/uL (0.0-0.8); MONO % 9.5 % (2.0-8.0); NEUTROPHILS # 5.2 10^3/uL (1.5-8.5); NEUTROPHILS % 77.2 % (36.0-66.0); PLATELET COUNT, AUTOMATED 256 10^3/uL (150-450); RED BLOOD COUNT 4.52 10^6/uL (4.00-5.40); WHITE BLOOD COUNT 6.8 10^3/uL (4.0-10.0)
[2023-12-19 16:47] LABS: INR 2.27; PARTIAL THROMBOPLASTIN TIME 44.3 SECONDS (24.8-34.2); PROTHROMBIN TIME 24.3 SECONDS (12.5-14.5)
[2023-12-19 16:58] LABS: C REACTIVE PROTEIN QUANTITATIV 4.3 MG/DL (<1.0)
[2023-12-19 17:00] LABS: ALBUMIN 3.1 G/DL (3.2-5.2); BILIRUBIN,TOTAL 0.5 MG/DL (0.3-1.2); CALCIUM LEVEL 8.6 MG/DL (8.3-10.6); CREATININE FOR GFR 1.31 MG/DL (0.55-1.30); GLOMERULAR FILTRATION RATE 40.8 (>32); POTASSIUM SERUM 5.4 MMOL/L (3.5-5.1); TOTAL PROTEIN 7.7 G/DL (5.7-8.2)
[2023-12-19] MEDS ORDERED: MECLIZINE 25 MG TABLET PO PRN (17:20)
[2023-12-19] MEDS ORDERED: CALCIUM CARBONATE 500 MG CHEW U/D PO PRN (17:20)
[2023-12-19] MEDS ORDERED: ACET-683 PO (17:37)
[2023-12-19] MEDS ORDERED: TRAM50TA2 PO (17:37)
[2023-12-19] MEDS ORDERED: BUDE10.22 INH (17:38)
[2023-12-19] MEDS ORDERED: HOME MED LIST COMPLETE! XX SCH (17:40)
[2023-12-19] MEDS ORDERED: PILL CUTTER 1 EACH XX PRN (18:05)
[2023-12-19 19:03] LABS: FREE T4 1.58 NG/DL (0.89-1.76)
[2023-12-19 19:17] LABS: THYROID STIMULATING HORMONE 2.341 uIU/ML (0.55-4.78)
[2023-12-19] MEDS: ADVAIR HFA 115/21MCG INHALER INH SCH (20:00)
[2023-12-19 20:48] VITALS: BP 146/74; TEMP 97; O2SAT 95
[2023-12-19] MEDS: WARFARIN SOD 2.5MG TAB PO SCH (21:41)
[2023-12-19] MEDS: ACETAMINOPHEN TAB 650MG DOSE (2X325MG) PO PRN (23:21)
[2023-12-20] MEDS: LEVOTHYROXINE 125MCG TABLET (0.125MG) PO SCH (05:39)
[2023-12-20 06:23] VITALS: BP 144/81; TEMP 97.7; O2SAT 92
[2023-12-20] MEDS: SYMBICORT 80/4.5MCG INHALER 6GM INH SCH (08:00)
[2023-12-20] MEDS: dilTIAZem 120MG **CD** CAPSULE PO SCH (08:39)
[2023-12-20] MEDS: PARoxetine 20MG TABLET PO SCH (08:39)
[2023-12-20] MEDS ORDERED: SPIRONOLACTONE 25 MG TAB PO SCH (09:00)
[2023-12-20] MEDS: FERROUS SULFATE 325MG TAB PO SCH (10:20)
[2023-12-20] MEDS: VITAMIN D 1,000 INTERNATIONAL UNITS TABLET PO SCH (10:22)
[2023-12-20] MEDS: ASCORBIC ACID 500 MG TAB PO SCH (10:22)
[2023-12-20] MEDS: DOCUSATE SODIUM 100MG CAPSULE PO SCH (10:22)
[2023-12-20 11:30] VITALS: BP 149/83; TEMP 97.9; O2SAT 94
[2023-12-20 14:31] LABS: INR 2.07; PROTHROMBIN TIME 22.6 SECONDS (12.5-14.5)
[2023-12-20] MEDS: WARFARIN SOD 7.5MG TAB PO SCH (17:07)
[2023-12-20 19:33] VITALS: BP 145/77; TEMP 97.9; O2SAT 94; O2SAT 96
[2023-12-21 04:12] VITALS: BP 141/76; TEMP 97.3; O2SAT 100
[2023-12-21 06:46] LABS: INR 2.18; PROTHROMBIN TIME 23.5 SECONDS (12.5-14.5)
[2023-12-21 07:10] LABS: ALKALINE PHOSPHATASE 184 U/L (46-116); ALT/SGPT < 9 U/L (7.0-40); AST/SGOT 16 U/L (<34); BILIRUBIN,TOTAL 0.6 MG/DL (0.3-1.2); BLOOD UREA NITROGEN 37 MG/DL (9-23); CALCIUM LEVEL 9.1 MG/DL (8.3-10.6); CARBON DIOXIDE LEVEL 28 MMOL/L (20-31); CHLORIDE LEVEL 104 MMOL/L (98-107); CREATININE FOR GFR 1.19 MG/DL (0.55-1.30); GLOMERULAR FILTRATION RATE 45.6 (>32); GLUCOSE, FASTING 97 MG/DL (74-106); POTASSIUM SERUM 4.8 MMOL/L (3.5-5.1); SODIUM LEVEL 137 MMOL/L (136-145); TOTAL PROTEIN 7.3 G/DL (5.7-8.2)
[2023-12-21 12:16] VITALS: BP 131/75; TEMP 97.9; O2SAT 97
[2023-12-21 20:36] VITALS: BP 132/74; TEMP 97.9; O2SAT 94
[2023-12-22 04:00] VITALS: BP 130/73; TEMP 97.3; O2SAT 96
[2023-12-22 06:16] LABS: INR 2.44; PROTHROMBIN TIME 25.6 SECONDS (12.5-14.5)
[2023-12-22 12:00] VITALS: BP 125/74; TEMP 97.3; O2SAT 97
[2023-12-22 19:40] VITALS: BP 119/67; TEMP 97.5; O2SAT 96
[2023-12-23 03:54] VITALS: BP 161/88; TEMP 97.5; O2SAT 100
[2023-12-23 06:55] LABS: BASO # 0.1 10^3/uL (0.0-0.2); BASO % 0.8 % (0.0-1.0); EOS # 0.2 10^3/uL (0.0-0.5); EOS % 3.9 % (0.0-3.0); HEMATOCRIT 37.8 % (36.0-47.0); HEMOGLOBIN 11.2 g/dl (12.0-15.5); LYMPH # 0.8 10^3/uL (1.5-5.0); LYMPH % 13.3 % (24.0-44.0); MEAN CORPUSCULAR HEMOGLOBIN 21.5 pg (27.0-33.0); MEAN CORPUSCULAR HGB CONC 29.6 g/dl (32.0-36.5); MEAN CORPUSCULAR VOLUME 72.6 fl (80.0-96.0); MONO # 0.5 10^3/uL (0.0-0.8); MONO % 7.9 % (2.0-8.0); NEUTROPHILS # 4.6 10^3/uL (1.5-8.5); NEUTROPHILS % 73.8 % (36.0-66.0); PLATELET COUNT, AUTOMATED 246 10^3/uL (150-450); RED BLOOD COUNT 5.21 10^6/uL (4.00-5.40); WHITE BLOOD COUNT 6.2 10^3/uL (4.0-10.0)
[2023-12-23 07:21] LABS: ALBUMIN 3.1 G/DL (3.2-5.2); BILIRUBIN,TOTAL 0.7 MG/DL (0.3-1.2); CREATININE FOR GFR 1.06 MG/DL (0.55-1.30); GLOMERULAR FILTRATION RATE 52.1 (>32); TOTAL PROTEIN 7.7 G/DL (5.7-8.2)
[2023-12-23 11:54] VITALS: BP 128/71; TEMP 97.7; O2SAT 96
[2023-12-23 11:58] VITALS: BP 139/83; TEMP 98.1; O2SAT 96
[2023-12-24 03:57] VITALS: BP 132/70; TEMP 97.3; O2SAT 98
[2023-12-24 06:03] LABS: BASO % 0.6 % (0.0-1.0); EOS # 0.2 10^3/uL (0.0-0.5); EOS % 3.9 % (0.0-3.0); HEMATOCRIT 30.7 % (36.0-47.0); HEMOGLOBIN 9.4 g/dl (12.0-15.5); MEAN CORPUSCULAR HEMOGLOBIN 21.9 pg (27.0-33.0); MEAN CORPUSCULAR HGB CONC 30.6 g/dl (32.0-36.5); MEAN CORPUSCULAR VOLUME 71.6 fl (80.0-96.0); MONO # 0.6 10^3/uL (0.0-0.8); MONO % 11.4 % (2.0-8.0); NEUTROPHILS # 3.6 10^3/uL (1.5-8.5); NEUTROPHILS % 65.7 % (36.0-66.0); PLATELET COUNT, AUTOMATED 242 10^3/uL (150-450); RED BLOOD COUNT 4.29 10^6/uL (4.00-5.40); WHITE BLOOD COUNT 5.4 10^3/uL (4.0-10.0)
[2023-12-24 06:15] LABS: INR 1.72; PROTHROMBIN TIME 19.6 SECONDS (12.5-14.5)
[2023-12-24 06:22] LABS: CALCIUM LEVEL 9.1 MG/DL (8.3-10.6); CREATININE FOR GFR 0.94 MG/DL (0.55-1.30); GLOMERULAR FILTRATION RATE 59.8 (>32); POTASSIUM SERUM 5.1 MMOL/L (3.5-5.1)
[2023-12-24 08:45] VITALS: BP 137/71; TEMP 97.9; O2SAT 97
[2023-12-24 10:29] VITALS: BP 136/71; TEMP 98.1; O2SAT 97
[2023-12-24 11:22] VITALS: BP 140/70; TEMP 97.9; O2SAT 96
[2023-12-24 14:06] LABS: INR 1.39; PROTHROMBIN TIME 16.6 SECONDS (12.5-14.5)
[2023-12-24] MEDS: TRANEXAMIC ACID 100 MG/ML 10ML VIAL As Ordered ONE (14:43)
[2023-12-24 20:00] VITALS: BP 153/78; TEMP 97.5; O2SAT 93
[2023-12-24] MEDS: ENOXAPARIN 60MG/0.6ML SYRINGE (J1650 PER 10MG) SC SCH (20:29)
[2023-12-25 04:16] VITALS: BP 147/85; TEMP 97.3; O2SAT 96
[2023-12-25 06:14] LABS: BASO % 0.6 % (0.0-1.0); EOS # 0.2 10^3/uL (0.0-0.5); EOS % 3.2 % (0.0-3.0); HEMATOCRIT 32.6 % (36.0-47.0); HEMOGLOBIN 9.9 g/dl (12.0-15.5); LYMPH % 14.4 % (24.0-44.0); MEAN CORPUSCULAR HEMOGLOBIN 21.7 pg (27.0-33.0); MEAN CORPUSCULAR HGB CONC 30.4 g/dl (32.0-36.5); MEAN CORPUSCULAR VOLUME 71.5 fl (80.0-96.0); MONO # 0.8 10^3/uL (0.0-0.8); MONO % 10.9 % (2.0-8.0); NEUTROPHILS # 4.8 10^3/uL (1.5-8.5); NEUTROPHILS % 70.3 % (36.0-66.0); PLATELET COUNT, AUTOMATED 242 10^3/uL (150-450); RED BLOOD COUNT 4.56 10^6/uL (4.00-5.40); WHITE BLOOD COUNT 6.9 10^3/uL (4.0-10.0)
[2023-12-25 06:26] LABS: INR 1.26; PROTHROMBIN TIME 15.4 SECONDS (12.5-14.5)
[2023-12-25 06:42] LABS: BLOOD UREA NITROGEN 27 MG/DL (9-23); CALCIUM LEVEL 8.6 MG/DL (8.3-10.6); CARBON DIOXIDE LEVEL 32 MMOL/L (20-31); CHLORIDE LEVEL 104 MMOL/L (98-107); CREATININE FOR GFR 0.82 MG/DL (0.55-1.30); GLOMERULAR FILTRATION RATE > 60.0 (>32); GLUCOSE, FASTING 98 MG/DL (74-106); POTASSIUM SERUM 4.4 MMOL/L (3.5-5.1); SODIUM LEVEL 138 MMOL/L (136-145)
[2023-12-25 12:00] VITALS: BP 123/82; TEMP 97.5; O2SAT 92
[2023-12-25 20:48] VITALS: BP 130/82; TEMP 97; O2SAT 94
[2023-12-26 04:56] VITALS: BP 153/93; TEMP 97.3; O2SAT 97
[2023-12-26 06:20] LABS: BASO % 0.7 % (0.0-1.0); EOS # 0.3 10^3/uL (0.0-0.5); EOS % 4.7 % (0.0-3.0); HEMATOCRIT 30.3 % (36.0-47.0); HEMOGLOBIN 9.2 g/dl (12.0-15.5); LYMPH % 17.5 % (24.0-44.0); MEAN CORPUSCULAR HGB CONC 30.4 g/dl (32.0-36.5); MEAN CORPUSCULAR VOLUME 72.5 fl (80.0-96.0); MONO # 0.6 10^3/uL (0.0-0.8); MONO % 11.1 % (2.0-8.0); NEUTROPHILS # 3.7 10^3/uL (1.5-8.5); NEUTROPHILS % 65.6 % (36.0-66.0); PLATELET COUNT, AUTOMATED 232 10^3/uL (150-450); RED BLOOD COUNT 4.18 10^6/uL (4.00-5.40); WHITE BLOOD COUNT 5.7 10^3/uL (4.0-10.0)
[2023-12-26 06:43] LABS: CALCIUM LEVEL 8.7 MG/DL (8.3-10.6); CREATININE FOR GFR 0.94 MG/DL (0.55-1.30); GLOMERULAR FILTRATION RATE 59.8 (>32); POTASSIUM SERUM 4.4 MMOL/L (3.5-5.1)
[2023-12-26 07:58] LABS: INR 1.22; PROTHROMBIN TIME 15.1 SECONDS (12.5-14.5)
[2023-12-26 12:00] VITALS: BP 149/92; TEMP 97.7; O2SAT 95
[2023-12-26 20:06] VITALS: BP 148/91; TEMP 97.9; O2SAT 97
[2023-12-27 04:13] VITALS: BP 154/76; TEMP 97.2; O2SAT 99
[2023-12-27 06:17] LABS: BASO % 0.5 % (0.0-1.0); EOS # 0.2 10^3/uL (0.0-0.5); HEMATOCRIT 30.9 % (36.0-47.0); HEMOGLOBIN 9.2 g/dl (12.0-15.5); LYMPH % 17.5 % (24.0-44.0); MEAN CORPUSCULAR HEMOGLOBIN 21.6 pg (27.0-33.0); MEAN CORPUSCULAR HGB CONC 29.8 g/dl (32.0-36.5); MEAN CORPUSCULAR VOLUME 72.5 fl (80.0-96.0); MONO # 0.6 10^3/uL (0.0-0.8); MONO % 11.1 % (2.0-8.0); NEUTROPHILS # 3.6 10^3/uL (1.5-8.5); NEUTROPHILS % 66.5 % (36.0-66.0); PLATELET COUNT, AUTOMATED 225 10^3/uL (150-450); RED BLOOD COUNT 4.26 10^6/uL (4.00-5.40); WHITE BLOOD COUNT 5.5 10^3/uL (4.0-10.0)
[2023-12-27 06:36] LABS: BLOOD UREA NITROGEN 34 MG/DL (9-23); CARBON DIOXIDE LEVEL 33 MMOL/L (20-31); CHLORIDE LEVEL 105 MMOL/L (98-107); CREATININE FOR GFR 0.78 MG/DL (0.55-1.30); GLOMERULAR FILTRATION RATE > 60.0 (>32); GLUCOSE, FASTING 96 MG/DL (74-106); POTASSIUM SERUM 4.8 MMOL/L (3.5-5.1); SODIUM LEVEL 139 MMOL/L (136-145)
[2023-12-27] MEDS ORDERED: propofoL 200 MG/20 ML VIAL As Ordered ONE (08:27)
[2023-12-27] MEDS ORDERED: LIDOCAINE 2% 100MG/5ML SDV (FOR ANES.) As Ordered ONE (08:27)
[2023-12-27] MEDS ORDERED: ROCURONIUM BROMIDE 50MG/5ML VIAL As Ordered ONE (08:27)
[2023-12-27] MEDS ORDERED: ONDANSETRON 4MG 2ML VIAL As Ordered ONE (08:28)
[2023-12-27] MEDS ORDERED: KETOROLAC 60MG 2ML VIAL As Ordered ONE (08:28)
[2023-12-27] MEDS ORDERED: SUGAMMADEX SODIUM 500 MG/5 ML VIAL (BRIDION) As Ordered ONE (08:28)
[2023-12-27] MEDS: NS 1,000 ML IV SCH (08:44)
[2023-12-27 12:00] VITALS: BP 139/68; TEMP 97.7; O2SAT 98
[2023-12-27 13:34] LABS: IRON (FE) 58 UG/DL (50-170); PERCENT SATURATION 19.7 % (13.2-45.0); TOTAL IRON BINDING CAPACITY 295 UG/DL (250-425)
[2023-12-27 13:36] LABS: FERRITIN 159.4 NG/ML (7.3-270.7); FOLATE 8.41 NG/ML (>5.4); VITAMIN B12 LEVEL 401 PG/ML (211-911)
[2023-12-27 20:06] VITALS: BP 128/64; TEMP 97.9; O2SAT 98
[2023-12-27] MEDS: ENOXAPARIN 60MG/0.6ML SYRINGE (J1650 PER 10MG) SC SCH (20:13)
[2023-12-28 04:00] VITALS: BP 151/83; TEMP 97.3; O2SAT 98
[2023-12-28 06:58] LABS: BLOOD UREA NITROGEN 26 MG/DL (9-23); CALCIUM LEVEL 9.2 MG/DL (8.3-10.6); CARBON DIOXIDE LEVEL 31 MMOL/L (20-31); CHLORIDE LEVEL 105 MMOL/L (98-107); CREATININE FOR GFR 0.77 MG/DL (0.55-1.30); GLOMERULAR FILTRATION RATE > 60.0 (>32); GLUCOSE, FASTING 93 MG/DL (74-106); POTASSIUM SERUM 4.8 MMOL/L (3.5-5.1); SODIUM LEVEL 138 MMOL/L (136-145)
[2023-12-28 08:50] LABS: BASO % 0.5 % (0.0-1.0); EOS # 0.2 10^3/uL (0.0-0.5); EOS % 4.2 % (0.0-3.0); HEMATOCRIT 30.9 % (36.0-47.0); HEMOGLOBIN 9.3 g/dl (12.0-15.5); LYMPH # 0.8 10^3/uL (1.5-5.0); LYMPH % 14.7 % (24.0-44.0); MEAN CORPUSCULAR HGB CONC 30.1 g/dl (32.0-36.5); MEAN CORPUSCULAR VOLUME 73.2 fl (80.0-96.0); MONO # 0.6 10^3/uL (0.0-0.8); NEUTROPHILS # 3.9 10^3/uL (1.5-8.5); NEUTROPHILS % 70.2 % (36.0-66.0); PLATELET COUNT, AUTOMATED 217 10^3/uL (150-450); RED BLOOD COUNT 4.22 10^6/uL (4.00-5.40); WHITE BLOOD COUNT 5.5 10^3/uL (4.0-10.0)
[2023-12-28] MEDS: amLODIPine 5 MG TAB PO SCH (10:42)
[2023-12-28 10:43] VITALS: BP 146/80
[2023-12-28 11:59] VITALS: BP 138/78; TEMP 97.7; O2SAT 94
[2023-12-28 20:20] VITALS: BP 137/75; TEMP 98.1
[2023-12-29 04:00] VITALS: BP 137/75; TEMP 97.5; O2SAT 95
[2023-12-29 12:00] VITALS: BP 128/78; TEMP 97.7; O2SAT 99
[2023-12-29 20:38] VITALS: BP 144/68; TEMP 97.7; O2SAT 98
[2023-12-30 04:00] VITALS: BP 118/67; TEMP 97; O2SAT 98
[2023-12-30 06:20] LABS: BASO % 0.6 % (0.0-1.0); EOS # 0.2 10^3/uL (0.0-0.5); EOS % 2.9 % (0.0-3.0); HEMATOCRIT 28.2 % (36.0-47.0); HEMOGLOBIN 8.6 g/dl (12.0-15.5); LYMPH # 0.8 10^3/uL (1.5-5.0); LYMPH % 12.6 % (24.0-44.0); MEAN CORPUSCULAR HEMOGLOBIN 21.7 pg (27.0-33.0); MEAN CORPUSCULAR HGB CONC 30.5 g/dl (32.0-36.5); MEAN CORPUSCULAR VOLUME 71.2 fl (80.0-96.0); MONO # 0.6 10^3/uL (0.0-0.8); MONO % 9.4 % (2.0-8.0); NEUTROPHILS # 4.6 10^3/uL (1.5-8.5); NEUTROPHILS % 74.2 % (36.0-66.0); PLATELET COUNT, AUTOMATED 206 10^3/uL (150-450); RED BLOOD COUNT 3.96 10^6/uL (4.00-5.40); WHITE BLOOD COUNT 6.3 10^3/uL (4.0-10.0)
[2023-12-30 06:38] LABS: INR 1.08; PROTHROMBIN TIME 13.7 SECONDS (12.5-14.5)
[2023-12-30 06:43] LABS: BLOOD UREA NITROGEN 24 MG/DL (9-23); CALCIUM LEVEL 8.5 MG/DL (8.3-10.6); CARBON DIOXIDE LEVEL 30 MMOL/L (20-31); CHLORIDE LEVEL 104 MMOL/L (98-107); CREATININE FOR GFR 0.76 MG/DL (0.55-1.30); GLOMERULAR FILTRATION RATE > 60.0 (>32); GLUCOSE, FASTING 94 MG/DL (74-106); POTASSIUM SERUM 4.4 MMOL/L (3.5-5.1); SODIUM LEVEL 138 MMOL/L (136-145)
[2023-12-30 12:00] VITALS: BP 122/69; TEMP 97.4; O2SAT 93
[2023-12-30 20:57] VITALS: BP 130/75; TEMP 98.2; O2SAT 94
[2023-12-31 04:00] VITALS: BP 140/76; TEMP 97.7; O2SAT 93
[2023-12-31 06:59] LABS: BASO % 0.4 % (0.0-1.0); EOS # 0.1 10^3/uL (0.0-0.5); EOS % 1.6 % (0.0-3.0); HEMATOCRIT 27.2 % (36.0-47.0); HEMOGLOBIN 8.6 g/dl (12.0-15.5); LYMPH # 0.5 10^3/uL (1.5-5.0); LYMPH % 6.7 % (24.0-44.0); MEAN CORPUSCULAR HEMOGLOBIN 22.2 pg (27.0-33.0); MEAN CORPUSCULAR HGB CONC 31.6 g/dl (32.0-36.5); MEAN CORPUSCULAR VOLUME 70.1 fl (80.0-96.0); MONO # 0.7 10^3/uL (0.0-0.8); MONO % 9.7 % (2.0-8.0); NEUTROPHILS # 5.7 10^3/uL (1.5-8.5); NEUTROPHILS % 81.2 % (36.0-66.0); PLATELET COUNT, AUTOMATED 198 10^3/uL (150-450); RED BLOOD COUNT 3.88 10^6/uL (4.00-5.40)
[2023-12-31 07:32] LABS: BLOOD UREA NITROGEN 28 MG/DL (9-23); CALCIUM LEVEL 8.9 MG/DL (8.3-10.6); CARBON DIOXIDE LEVEL 30 MMOL/L (20-31); CHLORIDE LEVEL 101 MMOL/L (98-107); CREATININE FOR GFR 0.84 MG/DL (0.55-1.30); GLOMERULAR FILTRATION RATE > 60.0 (>32); GLUCOSE, FASTING 102 MG/DL (74-106); POTASSIUM SERUM 4.7 MMOL/L (3.5-5.1); SODIUM LEVEL 134 MMOL/L (136-145)
[2023-12-31] MEDS: ACETAMINOPHEN *IV* 1,000 MG in IV 1 EA IV ONE (08:25)
[2023-12-31] MEDS ORDERED: fentaNYL 100 MCG/2 ML INJECTION As Ordered ONE (11:24)
[2023-12-31] MEDS ORDERED: ACETAMINOPHEN 1000MG 100ML IV BAG As Ordered ONE (11:45)
[2023-12-31] MEDS ORDERED: VASOPRESSIN INJ 20UNITS/ML 1ML VIAL As Ordered ONE (13:02)
[2023-12-31 16:45] VITALS: BP 131/73; TEMP 97.5; O2SAT 94
[2023-12-31 20:46] VITALS: BP 134/72; TEMP 98.1
[2024-01-01] VITALS (9 sets, daily range): BP systolic 97–135; BP diastolic 57–73; TEMP 97.1–98.7; O2SAT 92–98
[2024-01-01] MEDS: NS 500 ML IV SCH (08:14)
[2024-01-01] MEDS ORDERED: ETOMIDATE INJ 20MG/10ML VIAL As Ordered ONE (11:35)
[2024-01-01] MEDS: BACITRACIN OINTMENT 30GM TUBE As Ordered ONE (13:04)
[2024-01-01] MEDS: ceFAZolin 2 GM/D5W 50 ML IV BAG As Ordered ONE (13:05)
[2024-01-01] MEDS: ceFAZolin 1GM VIAL As Ordered ONE (14:01)
[2024-01-01 16:27] LABS: HEMATOCRIT 29.1 % (36.0-47.0); HEMOGLOBIN 9.5 g/dl (12.0-15.5); MEAN CORPUSCULAR HEMOGLOBIN 23.9 pg (27.0-33.0); MEAN CORPUSCULAR HGB CONC 32.6 g/dl (32.0-36.5); MEAN CORPUSCULAR VOLUME 73.3 fl (80.0-96.0); PLATELET COUNT, AUTOMATED 163 10^3/uL (150-450); RED BLOOD COUNT 3.97 10^6/uL (4.00-5.40); WHITE BLOOD COUNT 6.8 10^3/uL (4.0-10.0)
[2024-01-01] MEDS ORDERED: ePHEDrine SULFATE 25 MG/5 ML(5MG/ML) SYRINGE As Ordered ONE (17:36)
[2024-01-01] MEDS: VANCOMYCIN 1000MG/20ML VIAL As Ordered ONE (17:56)
[2024-01-01] MEDS ORDERED: ONDANSETRON 4MG 2ML VIAL IV PRN (18:50)
[2024-01-01] MEDS ORDERED: oxyCODONE 5MG TAB PO PRN (18:50)
[2024-01-01] MEDS: fentaNYL 100 MCG/2 ML INJECTION IV PRN (20:09)
[2024-01-01 22:37] LABS: HEMOGLOBIN 9.3 g/dl (12.0-15.5)
[2024-01-02] VITALS (15 sets, daily range): BP systolic 106–132; BP diastolic 51–74; TEMP 97.2–99.9; O2SAT 89–99
[2024-01-02] MEDS: ceFAZolin SOD 1 GM in D5W MINI-BAG PLUS 50 ML IV SCH (01:47)
[2024-01-02 08:03] LABS: BASO % 0.1 % (0.0-1.0); HEMOGLOBIN 8.2 g/dl (12.0-15.5); LYMPH # 0.5 10^3/uL (1.5-5.0); LYMPH % 5.5 % (24.0-44.0); MEAN CORPUSCULAR HEMOGLOBIN 23.5 pg (27.0-33.0); MEAN CORPUSCULAR HGB CONC 31.5 g/dl (32.0-36.5); MEAN CORPUSCULAR VOLUME 74.5 fl (80.0-96.0); MONO # 0.7 10^3/uL (0.0-0.8); MONO % 7.5 % (2.0-8.0); NEUTROPHILS # 8.3 10^3/uL (1.5-8.5); NEUTROPHILS % 86.6 % (36.0-66.0); PLATELET COUNT, AUTOMATED 168 10^3/uL (150-450); RED BLOOD COUNT 3.49 10^6/uL (4.00-5.40); WHITE BLOOD COUNT 9.6 10^3/uL (4.0-10.0)
[2024-01-02 08:54] LABS: CALCIUM LEVEL 7.5 MG/DL (8.3-10.6); CREATININE FOR GFR 1.48 MG/DL (0.55-1.30); GLOMERULAR FILTRATION RATE 35.4 (>32); POTASSIUM SERUM 6.2 MMOL/L (3.5-5.1)
[2024-01-02] MEDS ORDERED: NS 1,000 ML IV ONE (09:00)
[2024-01-02] MEDS: NS 1,000 ML IV SCH (10:01)
[2024-01-02] MEDS: SENNA 8.6 MG TAB (SENOKOT) PO PRN (10:17)
[2024-01-02] MEDS: PATIROMER SORBITEX CALCIUM 8.4 GM POWDER PACKET (VELTASSA) PO ONE (10:17)
[2024-01-02] MEDS ORDERED: SENO8.6T5 PO (10:36)
[2024-01-02] MEDS ORDERED: CEFD300CAP PO (10:36)
[2024-01-02] MEDS: CALCIUM GLUCONATE 1,000 MG in D5W MINI-BAG PLUS 100 ML IV ONE (10:42)
[2024-01-02] MEDS ORDERED: RIVAROXABAN 15MG TAB (XARELTO) PO SCH (18:00)
[2024-01-02] MEDS ORDERED: CEFDINIR 300 MG CAP (OMNICEF) PO SCH ×2 (21:00)
== END 2024-01-02 18:22 | DRG 470 ==
LOC: M MS5PR 14:45 → M PCU 01-01 21:21
PROVIDERS: ADMIT General Practice; ATTEND General Practice
PROC: 30233K1 Transfusion of Nonautologous Frozen Plasma into Peripheral Vein, Percutaneous Approach (ICD-10-PCS; 2023-12-24)
PROC: 30233N1 Transfusion of Nonautologous Red Blood Cells into Peripheral Vein, Percutaneous Approach (ICD-10-PCS; 2024-01-01)
PROC: 0SRB0JZ Replacement of Left Hip Joint with Synthetic Substitute, Open Approach (ICD-10-PCS; principal; 2024-01-01 12:00)
PROC: 0QP704Z Removal of Internal Fixation Device from Left Upper Femur, Open Approach (ICD-10-PCS; 2024-01-01 12:00)
DX: T84.022A Instability of internal right knee prosthesis, initial encounter (principal); I13.0 Hypertensive heart and chronic kidney disease with heart failure and stage 1 through stage 4 chronic kidney disease, or unspecified chronic kidney disease; I50.32 Chronic diastolic (congestive) heart failure; I48.21 Permanent atrial fibrillation; E87.3 Alkalosis; S72.142K Displaced intertrochanteric fracture of left femur, subsequent encounter for closed fracture with nonunion; I27.81 Cor pulmonale (chronic); J44.9 Chronic obstructive pulmonary disease, unspecified; N18.30 Chronic kidney disease, stage 3 unspecified; J45.909 Unspecified asthma, uncomplicated; E03.9 Hypothyroidism, unspecified; Z96.642 Presence of left artificial hip joint; D64.9 Anemia, unspecified; E55.9 Vitamin D deficiency, unspecified; F32.A Depression, unspecified; G47.33 Obstructive sleep apnea (adult) (pediatric); Z79.899 Other long term (current) drug therapy; Z79.01 Long term (current) use of anticoagulants; F41.9 Anxiety disorder, unspecified

== ENCOUNTER 2024-01-02 14:34 | Inpatient (IN) | payer MEDICARE ==
[~2024-01-02] VITALS: Ht 154.9 cm; Wt 58.0 kg
[~2024-01-02 14:34] MED LIST changes: +BUDE10.22 INH; +CEFD300CAP PO; +SENO8.6T5 PO
[2024-01-02] MEDS ORDERED: SENOKOT S TAB PO PRN (15:10)
[2024-01-02] MEDS ORDERED: CALCIUM CARBONATE 500 MG CHEW U/D PO PRN (15:10)
[2024-01-02] MEDS ORDERED: MECLIZINE 25 MG TABLET PO PRN (15:10)
[2024-01-02] MEDS ORDERED: MAALOX 30 ML SUSP *UDC PO PRN (15:30)
[2024-01-02] MEDS ORDERED: BISACODYL 10MG SUPP PR PRN (15:30)
[2024-01-02] MEDS ORDERED: ONDANSETRON 4MG TAB PO PRN (15:30)
[2024-01-02] MEDS ORDERED: FLEET ENEMA PR PRN (15:30)
[2024-01-02] MEDS ORDERED: MOM 30ML SUSPENSION UDC PO PRN (15:30)
[2024-01-02] MEDS ORDERED: SIMETHICONE 80MG CHEW TAB PO PRN (15:30)
[2024-01-02 18:30] VITALS: BP 116/55; TEMP 97.3; O2SAT 98
[2024-01-02] MEDS: ADVAIR HFA 115/21MCG INHALER INH SCH (19:30)
[2024-01-02] MEDS: SYMBICORT 80/4.5MCG INHALER 6GM INH SCH (19:30)
[2024-01-02 19:44] VITALS: BP 116/57; TEMP 97.6; O2SAT 97
[2024-01-02] MEDS: traMADol 50 MG TAB PO PRN (21:30)
[2024-01-02] MEDS: RIVAROXABAN 15MG TAB (XARELTO) PO SCH (21:30)
[2024-01-02] MEDS: CEFDINIR 300 MG CAP (OMNICEF) PO SCH (21:30)
[2024-01-02] MEDS: oxyCODONE 5MG TAB PO PRN (23:49)
[2024-01-03 04:02] VITALS: BP 111/56; TEMP 97; O2SAT 98
[2024-01-03] MEDS: traMADol 50 MG TAB PO SCH (06:28)
[2024-01-03] MEDS: ACETAMINOPHEN 500 MG TAB PO SCH (06:29)
[2024-01-03] MEDS: LEVOTHYROXINE 125MCG TABLET (0.125MG) PO SCH (06:35)
[2024-01-03 07:21] LABS: EOS % 0.2 % (0.0-3.0); HEMATOCRIT 25.1 % (36.0-47.0); HEMOGLOBIN 8.2 g/dl (12.0-15.5); LYMPH # 0.9 10^3/uL (1.5-5.0); LYMPH % 9.6 % (24.0-44.0); MEAN CORPUSCULAR HEMOGLOBIN 25.2 pg (27.0-33.0); MEAN CORPUSCULAR HGB CONC 32.7 g/dl (32.0-36.5); MEAN CORPUSCULAR VOLUME 77.2 fl (80.0-96.0); MONO % 11.6 % (2.0-8.0); NEUTROPHILS % 77.9 % (36.0-66.0); PLATELET COUNT, AUTOMATED 171 10^3/uL (150-450); RED BLOOD COUNT 3.25 10^6/uL (4.00-5.40)
[2024-01-03 07:49] LABS: CREATININE FOR GFR 1.54 MG/DL (0.55-1.30); GLOMERULAR FILTRATION RATE 33.8 (>32); POTASSIUM SERUM 4.9 MMOL/L (3.5-5.1)
[2024-01-03] MEDS: MULTIVITAMINS/MINERALS THERAP 1 TAB PO SCH (09:03)
[2024-01-03] MEDS: PARoxetine 20MG TABLET PO SCH (09:03)
[2024-01-03] MEDS: FERROUS SULFATE 325MG TAB PO SCH (09:03)
[2024-01-03] MEDS: amLODIPine 5 MG TAB PO SCH (09:05)
[2024-01-03] MEDS: dilTIAZem 120MG **CD** CAPSULE PO SCH (09:05)
[2024-01-03 12:00] VITALS: BP 104/72; TEMP 98.5; O2SAT 91
[2024-01-03] MEDS ORDERED: PILL CUTTER 1 EACH XX PRN (12:50)
[2024-01-03 20:00] VITALS: BP 112/57; TEMP 97.8; O2SAT 92
[2024-01-03] MEDS: CEFDINIR 300 MG CAP (OMNICEF) PO SCH (20:09)
[2024-01-03] MEDS: oxyCODONE 5MG TAB PO PRN (20:09)
[2024-01-04 04:00] VITALS: BP 112/57; TEMP 97.7; O2SAT 97
[2024-01-04 06:53] LABS: HEMATOCRIT 24.2 % (36.0-47.0); HEMOGLOBIN 7.6 g/dl (12.0-15.5); MEAN CORPUSCULAR HEMOGLOBIN 24.4 pg (27.0-33.0); MEAN CORPUSCULAR HGB CONC 31.4 g/dl (32.0-36.5); MEAN CORPUSCULAR VOLUME 77.6 fl (80.0-96.0); PLATELET COUNT, AUTOMATED 167 10^3/uL (150-450); RED BLOOD COUNT 3.12 10^6/uL (4.00-5.40); WHITE BLOOD COUNT 6.3 10^3/uL (4.0-10.0)
[2024-01-04 07:31] LABS: BLOOD UREA NITROGEN 44 MG/DL (9-23); CALCIUM LEVEL 7.9 MG/DL (8.3-10.6); CARBON DIOXIDE LEVEL 28 MMOL/L (20-31); CHLORIDE LEVEL 106 MMOL/L (98-107); CREATININE FOR GFR 1.29 MG/DL (0.55-1.30); GLOMERULAR FILTRATION RATE 41.5 (>32); GLUCOSE, FASTING 109 MG/DL (74-106); POTASSIUM SERUM 4.8 MMOL/L (3.5-5.1); SODIUM LEVEL 133 MMOL/L (136-145)
[2024-01-04] MEDS: oxyCODONE 5MG TAB PO PRN (10:11)
[2024-01-04 11:26] LABS: HEMATOCRIT 27.2 % (36.0-47.0); HEMOGLOBIN 8.6 g/dl (12.0-15.5)
[2024-01-04 12:00] VITALS: BP 126/61; TEMP 97; O2SAT 98
[2024-01-04 19:54] VITALS: BP 135/60; TEMP 97.2; O2SAT 98
[2024-01-05 04:00] VITALS: BP 105/56; TEMP 97.5; O2SAT 93
[2024-01-05 06:57] LABS: HEMATOCRIT 24.8 % (36.0-47.0); HEMOGLOBIN 7.8 g/dl (12.0-15.5); MEAN CORPUSCULAR HEMOGLOBIN 24.6 pg (27.0-33.0); MEAN CORPUSCULAR HGB CONC 31.5 g/dl (32.0-36.5); MEAN CORPUSCULAR VOLUME 78.2 fl (80.0-96.0); PLATELET COUNT, AUTOMATED 200 10^3/uL (150-450); RED BLOOD COUNT 3.17 10^6/uL (4.00-5.40); WHITE BLOOD COUNT 7.5 10^3/uL (4.0-10.0)
[2024-01-05 07:22] LABS: CALCIUM LEVEL 8.1 MG/DL (8.3-10.6); CREATININE FOR GFR 1.55 MG/DL (0.55-1.30); GLOMERULAR FILTRATION RATE 33.6 (>32)
[2024-01-05 12:00] VITALS: BP 115/56; TEMP 99.5; O2SAT 97
[2024-01-05] MEDS: BISACODYL 5MG TAB PO PRN (17:43)
[2024-01-05] MEDS: MIRALAX *UNIT DOSE* 17GM PACKET PO PRN (17:43)
[2024-01-05 20:00] VITALS: BP 120/55; TEMP 97.8; O2SAT 98
[2024-01-06 03:37] VITALS: BP 118/56; TEMP 98.2; O2SAT 91
[2024-01-06 07:02] LABS: HEMATOCRIT 25.6 % (36.0-47.0); HEMOGLOBIN 8.1 g/dl (12.0-15.5); MEAN CORPUSCULAR HEMOGLOBIN 24.5 pg (27.0-33.0); MEAN CORPUSCULAR HGB CONC 31.6 g/dl (32.0-36.5); MEAN CORPUSCULAR VOLUME 77.6 fl (80.0-96.0); PLATELET COUNT, AUTOMATED 241 10^3/uL (150-450); WHITE BLOOD COUNT 6.9 10^3/uL (4.0-10.0)
[2024-01-06 07:32] LABS: CALCIUM LEVEL 7.7 MG/DL (8.3-10.6); CREATININE FOR GFR 1.17 MG/DL (0.55-1.30); GLOMERULAR FILTRATION RATE 46.5 (>32); POTASSIUM SERUM 4.2 MMOL/L (3.5-5.1)
[2024-01-06] MEDS ORDERED: DIGOXIN INJ 0.5 MG/2 ML AMP IV STA (08:09)
[2024-01-06] MEDS ORDERED: METOPROLOL TART 50 MG TAB PO ONE (08:10)
[2024-01-06] MEDS: MIDODRINE 5 MG TAB PO ONE (08:42)
[2024-01-06] MEDS ORDERED: traMADol 50 MG TAB PO PRN (10:20)
[2024-01-06 12:00] VITALS: BP 123/60; TEMP 98; O2SAT 90
[2024-01-06] MEDS ORDERED: LEVALBUTEROL 1.25MG 0.5ML CONCENTRATE NEB INH PRN (12:00)
[2024-01-08] MEDS ORDERED: PANT40TA29 PO (14:17)
[2024-01-08] MEDS ORDERED: PRED20TA PO (14:17)
[2024-01-08] MEDS ORDERED: AMOX875T2 PO (14:17)
[2024-01-08] MEDS ORDERED: MUCI600T31 PO (14:17)
[2024-01-08] MEDS ORDERED: OXYC-517 PO (14:17)
[2024-01-08] MEDS ORDERED: XARE15TA PO (14:17)
[2024-01-08 15:30] VITALS: BP 142/70; TEMP 97.2; O2SAT 100
[2024-01-08] MEDS ORDERED: MECLIZINE 25 MG TABLET PO PRN (15:35)
[2024-01-08] MEDS ORDERED: oxyCODONE 5MG TAB PO PRN (15:35)
[2024-01-08] MEDS ORDERED: MOM 30ML SUSPENSION UDC PO PRN (15:40)
[2024-01-08] MEDS ORDERED: PILL CUTTER 1 EACH XX PRN (16:10)
[2024-01-08] MEDS: RIVAROXABAN 15MG TAB (XARELTO) PO SCH (17:53)
[2024-01-08] MEDS: SYMBICORT 80/4.5MCG INHALER 6GM INH SCH (19:47)
[2024-01-08] MEDS: FLUTICASONE HFA 110MCG 12GM INHALER (FLOVENT) INH SCH (19:48)
[2024-01-08] MEDS: IPRATROPIUM 0.5MG/ALBUTEROL 2.5MG INH SOL UD 3ML (DUONEB) NEB SCH (19:48)
[2024-01-08 20:09] VITALS: BP 163/78; TEMP 98.1; O2SAT 92
[2024-01-08] MEDS: AUGMENTIN 875 MG TAB PO SCH (20:27)
[2024-01-08] MEDS: ACETAMINOPHEN TAB 650MG DOSE (2X325MG) PO PRN (20:28)
[2024-01-08] MEDS: guaiFENesin ER TABLET 600 MG TAB PO SCH (20:30)
[2024-01-08] MEDS: SENNA 8.6 MG TAB (SENOKOT) PO PRN (20:41)
[2024-01-08 21:10] VITALS: BP 139/65
[2024-01-09] MEDS: oxyCODONE 5MG TAB PO PRN (02:36)
[2024-01-09 03:38] VITALS: BP 144/71; TEMP 97.7; O2SAT 96
[2024-01-09] MEDS: LEVOTHYROXINE 125MCG TABLET (0.125MG) PO SCH (06:38)
[2024-01-09] MEDS: predniSONE 20 MG TAB PO SCH (07:34)
[2024-01-09] MEDS: PARoxetine 20MG TABLET PO SCH (07:34)
[2024-01-09] MEDS: PANTOPRAZOLE 40MG TAB (PROTONIX) PO SCH (07:34)
[2024-01-09] MEDS: dilTIAZem 120MG **CD** CAPSULE PO SCH (07:38)
[2024-01-09] MEDS: amLODIPine 5 MG TAB PO ONE (10:09)
[2024-01-09 12:00] VITALS: BP 128/58; TEMP 97; O2SAT 94
[2024-01-09 14:09] LABS: HEMATOCRIT 24.6 % (36.0-47.0); HEMOGLOBIN 7.5 g/dl (12.0-15.5); MEAN CORPUSCULAR HEMOGLOBIN 24.9 pg (27.0-33.0); MEAN CORPUSCULAR HGB CONC 30.5 g/dl (32.0-36.5); MEAN CORPUSCULAR VOLUME 81.7 fl (80.0-96.0); PLATELET COUNT, AUTOMATED 279 10^3/uL (150-450); RED BLOOD COUNT 3.01 10^6/uL (4.00-5.40); WHITE BLOOD COUNT 16.2 10^3/uL (4.0-10.0)
[2024-01-09 14:51] LABS: PROCALCITONIN 0.32 ng/ml
[2024-01-09 14:52] LABS: CALCIUM LEVEL 8.4 MG/DL (8.3-10.6); CREATININE FOR GFR 1.15 MG/DL (0.55-1.30); GLOMERULAR FILTRATION RATE 47.4 (>32); POTASSIUM SERUM 5.2 MMOL/L (3.5-5.1)
[2024-01-09] MEDS: PATIROMER SORBITEX CALCIUM 8.4 GM POWDER PACKET (VELTASSA) PO ONE (17:15)
[2024-01-09] MEDS: FUROSEMIDE 20MG/2ML VIAL IV ONE (18:31)
[2024-01-09] MEDS: COMBIVENT RESPIMAT 100-20MCG INHALER 4GM INH SCH (19:33)
[2024-01-09 20:00] VITALS: BP 124/60; TEMP 98.2; O2SAT 96
[2024-01-10] VITALS (8 sets, daily range): BP systolic 118–137; BP diastolic 57–71; TEMP 97–99; O2SAT 3–96
[2024-01-10 07:09] LABS: BASO % 0.1 % (0.0-1.0); LYMPH # 0.6 10^3/uL (1.5-5.0); LYMPH % 3.3 % (24.0-44.0); MEAN CORPUSCULAR HEMOGLOBIN 24.9 pg (27.0-33.0); MEAN CORPUSCULAR HGB CONC 30.8 g/dl (32.0-36.5); MEAN CORPUSCULAR VOLUME 80.8 fl (80.0-96.0); MONO # 1.3 10^3/uL (0.0-0.8); MONO % 7.7 % (2.0-8.0); NEUTROPHILS # 14.5 10^3/uL (1.5-8.5); NEUTROPHILS % 87.8 % (36.0-66.0); PLATELET COUNT, AUTOMATED 204 10^3/uL (150-450); RED BLOOD COUNT 2.45 10^6/uL (4.00-5.40); WHITE BLOOD COUNT 16.5 10^3/uL (4.0-10.0)
[2024-01-10 07:23] LABS: HEMATOCRIT 19.8 % (36.0-47.0); HEMOGLOBIN 6.1 g/dl (12.0-15.5)
[2024-01-10 08:06] LABS: CALCIUM LEVEL 8.2 MG/DL (8.3-10.6); CREATININE FOR GFR 1.54 MG/DL (0.55-1.30); GLOMERULAR FILTRATION RATE 33.8 (>32); MAGNESIUM LEVEL 1.7 MG/DL (1.8-2.4); POTASSIUM SERUM 5.3 MMOL/L (3.5-5.1)
[2024-01-10] MEDS: FERROUS SULFATE 325MG TAB PO SCH (08:27)
[2024-01-10] MEDS: amLODIPine 5 MG TAB PO SCH (08:27)
[2024-01-10 09:53] LABS: HEMATOCRIT 20.2 % (36.0-47.0); HEMOGLOBIN 6.2 g/dl (12.0-15.5)
[2024-01-10] MEDS: NS 1,000 ML IV SCH ×2 (11:00→17:10)
[2024-01-10] MEDS: FUROSEMIDE 40MG/4ML VIAL IV PRN (14:37)
[2024-01-10] MEDS: PATIROMER SORBITEX CALCIUM 8.4 GM POWDER PACKET (VELTASSA) PO ONE (14:37)
[2024-01-10] MEDS: MAG SULF 1GM/100ML (MAG RUN) 1 GM in IV 1 EA IV ONE (17:11)
[2024-01-10 18:36] LABS: HEMATOCRIT 27.1 % (36.0-47.0)
[2024-01-10 18:39] LABS: HEMOGLOBIN 8.6 g/dl (12.0-15.5)
[2024-01-10 18:50] LABS: CALCIUM LEVEL 8.2 MG/DL (8.3-10.6); CREATININE FOR GFR 1.39 MG/DL (0.55-1.30); GLOMERULAR FILTRATION RATE 38.1 (>32); MAGNESIUM LEVEL 1.6 MG/DL (1.8-2.4); POTASSIUM SERUM 4.6 MMOL/L (3.5-5.1)
[2024-01-10] MEDS: CALCIUM GLUCONATE 1,000 MG in D5W MINI-BAG PLUS 100 ML IV ONE (20:00)
[2024-01-10] MEDS: cefTRIAXone SOD 2 GM in D5W MINI-BAG PLUS 50 ML IV SCH (21:19)
[2024-01-11 04:00] VITALS: BP 121/55; TEMP 97.6; O2SAT 91
[2024-01-11 05:00] VITALS: O2SAT 97
[2024-01-11] MEDS: BISACODYL 10MG SUPP PR PRN (05:08)
[2024-01-11 07:08] LABS: BASO % 0.2 % (0.0-1.0); HEMATOCRIT 27.7 % (36.0-47.0); HEMOGLOBIN 8.6 g/dl (12.0-15.5); LYMPH # 0.3 10^3/uL (1.5-5.0); LYMPH % 1.8 % (24.0-44.0); MEAN CORPUSCULAR HEMOGLOBIN 25.1 pg (27.0-33.0); MEAN CORPUSCULAR VOLUME 80.8 fl (80.0-96.0); MONO % 5.2 % (2.0-8.0); NEUTROPHILS # 16.8 10^3/uL (1.5-8.5); NEUTROPHILS % 91.8 % (36.0-66.0); PLATELET COUNT, AUTOMATED 208 10^3/uL (150-450); RED BLOOD COUNT 3.43 10^6/uL (4.00-5.40); WHITE BLOOD COUNT 18.3 10^3/uL (4.0-10.0)
[2024-01-11 07:34] LABS: CALCIUM LEVEL 8.8 MG/DL (8.3-10.6); CREATININE FOR GFR 1.34 MG/DL (0.55-1.30); GLOMERULAR FILTRATION RATE 39.7 (>32); POTASSIUM SERUM 4.5 MMOL/L (3.5-5.1)
[2024-01-11 12:00] VITALS: BP 122/62; TEMP 97.8; O2SAT 97
[2024-01-11] MEDS: REMDESIVIR 200 MG in NS 250 ML IV ONE (16:49)
[2024-01-11 20:00] VITALS: BP 156/67; TEMP 98.4; O2SAT 95
[2024-01-12 04:00] VITALS: BP 135/63; TEMP 97; O2SAT 94
[2024-01-12 07:06] LABS: BASO % 0.1 % (0.0-1.0); HEMATOCRIT 27.3 % (36.0-47.0); HEMOGLOBIN 8.6 g/dl (12.0-15.5); LYMPH # 0.2 10^3/uL (1.5-5.0); LYMPH % 0.8 % (24.0-44.0); MEAN CORPUSCULAR HEMOGLOBIN 25.4 pg (27.0-33.0); MEAN CORPUSCULAR HGB CONC 31.5 g/dl (32.0-36.5); MEAN CORPUSCULAR VOLUME 80.8 fl (80.0-96.0); MONO % 3.5 % (2.0-8.0); NEUTROPHILS # 28.5 10^3/uL (1.5-8.5); NEUTROPHILS % 94.7 % (36.0-66.0); PLATELET COUNT, AUTOMATED 213 10^3/uL (150-450); RED BLOOD COUNT 3.38 10^6/uL (4.00-5.40)
[2024-01-12 07:15] LABS: WHITE BLOOD COUNT 30.1 10^3/uL (4.0-10.0)
[2024-01-12 07:49] LABS: CALCIUM LEVEL 8.4 MG/DL (8.3-10.6); CREATININE FOR GFR 1.32 MG/DL (0.55-1.30); GLOMERULAR FILTRATION RATE 40.4 (>32)
[2024-01-12 10:04] VITALS: BP 135/63
[2024-01-12 12:00] VITALS: BP 147/74; TEMP 98.2; O2SAT 91
[2024-01-12 13:05] LABS: BASO # 0.1 10^3/uL (0.0-0.2); BASO % 0.2 % (0.0-1.0); EOS % 0.1 % (0.0-3.0); HEMATOCRIT 28.9 % (36.0-47.0); LYMPH # 0.1 10^3/uL (1.5-5.0); LYMPH % 0.4 % (24.0-44.0); MEAN CORPUSCULAR HEMOGLOBIN 25.4 pg (27.0-33.0); MEAN CORPUSCULAR HGB CONC 31.1 g/dl (32.0-36.5); MEAN CORPUSCULAR VOLUME 81.4 fl (80.0-96.0); MONO % 3.1 % (2.0-8.0); NEUTROPHILS % 95.1 % (36.0-66.0); PLATELET COUNT, AUTOMATED 224 10^3/uL (150-450); RED BLOOD COUNT 3.55 10^6/uL (4.00-5.40); WHITE BLOOD COUNT 33.6 10^3/uL (4.0-10.0)
[2024-01-12 13:08] LABS: ERYTHROCYTE SEDIMENTATION RATE 34 mm/hr (0-30)
[2024-01-12] MEDS: HEPARIN SOD (PORCINE) 5000UNITS/ML 1ML VIAL/SYRINGE SQ SCH (14:00)
[2024-01-12] MEDS: REMDESIVIR 100 MG in NS 250 ML IV SCH (15:00)
[2024-01-12] MEDS ORDERED: DOXYCYCLINE HYCLATE 100MG TABLET PO SCH (21:00)
== END 2024-01-12 15:17 | disposition expired | DRG 91 ==
LOC: M PM&R 18:28 → UNDODISIN 01-06 12:06
PROVIDERS: ADMIT Physical Medicine & Rehabilitation; ATTEND Physical Medicine & Rehabilitation
DX: R26.89 Other abnormalities of gait and mobility (principal); U07.1 COVID-19; J12.82 Pneumonia due to coronavirus disease 2019; K68.3 Retroperitoneal hematoma; I50.33 Acute on chronic diastolic (congestive) heart failure; I13.0 Hypertensive heart and chronic kidney disease with heart failure and stage 1 through stage 4 chronic kidney disease, or unspecified chronic kidney disease; J44.0 Chronic obstructive pulmonary disease with (acute) lower respiratory infection; I48.21 Permanent atrial fibrillation; D62 Acute posthemorrhagic anemia; E87.1 Hypo-osmolality and hyponatremia; L76.32 Postprocedural hematoma of skin and subcutaneous tissue following other procedure; D68.32 Hemorrhagic disorder due to extrinsic circulating anticoagulants; E87.3 Alkalosis; S72.142K Displaced intertrochanteric fracture of left femur, subsequent encounter for closed fracture with nonunion; T84.022D Instability of internal right knee prosthesis, subsequent encounter; N18.30 Chronic kidney disease, stage 3 unspecified; E55.9 Vitamin D deficiency, unspecified; M85.80 Other specified disorders of bone density and structure, unspecified site; I27.81 Cor pulmonale (chronic); F32.A Depression, unspecified; R33.8 Other retention of urine; J45.909 Unspecified asthma, uncomplicated; E03.9 Hypothyroidism, unspecified; M81.0 Age-related osteoporosis without current pathological fracture; E87.5 Hyperkalemia; G47.33 Obstructive sleep apnea (adult) (pediatric); I08.0 Rheumatic disorders of both mitral and aortic valves; F41.9 Anxiety disorder, unspecified; Z96.642 Presence of left artificial hip joint; S32.402D Unspecified fracture of left acetabulum, subsequent encounter for fracture with routine healing

== ENCOUNTER 2024-01-06 08:22 | Inpatient (IN) | payer MEDICARE ==
[~2024-01-06] VITALS: Ht 154.9 cm; Wt 56.6 kg
[2024-01-06] MEDS ORDERED: ACETAMINOPHEN 500 MG TAB PO SCH (08:40)
[2024-01-06] MEDS ORDERED: SENOKOT S TAB PO PRN (08:50)
[2024-01-06] MEDS ORDERED: oxyCODONE 5MG TAB PO PRN (08:50)
[2024-01-06] MEDS ORDERED: MOM 30ML SUSPENSION UDC PO PRN (08:50)
[2024-01-06] MEDS ORDERED: CEFDINIR 300 MG CAP (OMNICEF) PO SCH (09:00)
[2024-01-06] MEDS ORDERED: MECLIZINE 25 MG TABLET PO PRN (11:50)
[2024-01-06 12:05] VITALS: BP 115/54; TEMP 97.3; O2SAT 95
[2024-01-06] MEDS ORDERED: ISOVUE-370 76% 100ML VIAL As Ordered ONE (12:12)
[2024-01-06 13:31] VITALS: BP 119/54; TEMP 97.3; O2SAT 92
[2024-01-06] MEDS: FUROSEMIDE 20MG/2ML VIAL IV ONE (14:49)
[2024-01-06] MEDS: RIVAROXABAN 15MG TAB (XARELTO) PO SCH (17:30)
[2024-01-06] MEDS: SYMBICORT 80/4.5MCG INHALER 6GM INH SCH (19:23)
[2024-01-06] MEDS: FLUTICASONE HFA 110MCG 12GM INHALER (FLOVENT) INH SCH (19:23)
[2024-01-06 19:53] VITALS: BP 125/56; TEMP 98.1; O2SAT 92
[2024-01-06] MEDS: CEFDINIR 300 MG CAP (OMNICEF) PO SCH (20:11)
[2024-01-06] MEDS: ACETAMINOPHEN TAB 650MG DOSE (2X325MG) PO PRN (20:19)
[2024-01-07] VITALS (18 sets, daily range): BP systolic 119–141; BP diastolic 61–89; TEMP 97–99.8; O2SAT 85–98
[2024-01-07] MEDS: FUROSEMIDE 40MG/4ML VIAL IV STA (01:12)
[2024-01-07] MEDS: IPRATROPIUM 0.5MG/ALBUTEROL 2.5MG INH SOL UD 3ML (DUONEB) NEB ONE (01:19)
[2024-01-07 02:05] LABS: BASO % 0.3 % (0.0-1.0); EOS # 0.2 10^3/uL (0.0-0.5); HEMATOCRIT 25.3 % (36.0-47.0); HEMOGLOBIN 8.1 g/dl (12.0-15.5); LYMPH # 0.7 10^3/uL (1.5-5.0); LYMPH % 9.8 % (24.0-44.0); MEAN CORPUSCULAR HEMOGLOBIN 24.9 pg (27.0-33.0); MEAN CORPUSCULAR VOLUME 77.8 fl (80.0-96.0); MONO # 0.9 10^3/uL (0.0-0.8); MONO % 11.7 % (2.0-8.0); NEUTROPHILS # 5.6 10^3/uL (1.5-8.5); PLATELET COUNT, AUTOMATED 251 10^3/uL (150-450); RED BLOOD COUNT 3.25 10^6/uL (4.00-5.40); WHITE BLOOD COUNT 7.6 10^3/uL (4.0-10.0)
[2024-01-07] MEDS: methylPREDNISolone 40MG 1ML VIAL IV SCH (02:16)
[2024-01-07 02:27] LABS: ALBUMIN 2.5 G/DL (3.2-5.2); ALKALINE PHOSPHATASE 143 U/L (46-116); ALT/SGPT < 9 U/L (7.0-40); AST/SGOT 27 U/L (<34); BILIRUBIN,TOTAL 0.7 MG/DL (0.3-1.2); BLOOD UREA NITROGEN 44 MG/DL (9-23); CALCIUM LEVEL 7.7 MG/DL (8.3-10.6); CARBON DIOXIDE LEVEL 26 MMOL/L (20-31); CHLORIDE LEVEL 104 MMOL/L (98-107); CREATININE FOR GFR 1.12 MG/DL (0.55-1.30); GLOMERULAR FILTRATION RATE 48.9 (>32); GLUCOSE, FASTING 112 MG/DL (74-106); POTASSIUM SERUM 4.2 MMOL/L (3.5-5.1); SODIUM LEVEL 134 MMOL/L (136-145); TOTAL PROTEIN 6.3 G/DL (5.7-8.2)
[2024-01-07] MEDS: LEVOTHYROXINE 125MCG TABLET (0.125MG) PO SCH (06:03)
[2024-01-07] MEDS: CEFEPIME HCL 1 GM in D5W MINI-BAG PLUS 50 ML IV SCH ×2 (06:04→17:21)
[2024-01-07] MEDS: IPRATROPIUM 0.5MG/ALBUTEROL 2.5MG INH SOL UD 3ML (DUONEB) NEB SCH (07:36)
[2024-01-07] MEDS: PANTOPRAZOLE 40MG TAB (PROTONIX) PO SCH (08:29)
[2024-01-07] MEDS: guaiFENesin ER TABLET 600 MG TAB PO SCH (08:29)
[2024-01-07] MEDS: PARoxetine 20MG TABLET PO SCH (08:30)
[2024-01-07] MEDS: dilTIAZem 120MG **CD** CAPSULE PO SCH (08:31)
[2024-01-07] MEDS ORDERED: FLUBLOK(EGGFREE) TRIVAL(24-25) VACCINE PF 0.5ML SYRINGE 18YRS & OLDER IM.IMMUN ONE (09:00)
[2024-01-07] MEDS: FUROSEMIDE 20MG/2ML VIAL IV ONE (09:10)
[2024-01-07 10:06] LABS: PROCALCITONIN 0.48 ng/ml
[2024-01-07] MEDS ORDERED: PILL CUTTER 1 EACH XX PRN (13:15)
[2024-01-08 04:00] VITALS: BP 124/61; TEMP 97.7; O2SAT 96
[2024-01-08] MEDS: oxyCODONE 5MG TAB PO PRN (08:00)
[2024-01-08 08:01] VITALS: BP 124/61
[2024-01-08 08:36] LABS: HEMATOCRIT 26.5 % (36.0-47.0); HEMOGLOBIN 8.4 g/dl (12.0-15.5); MEAN CORPUSCULAR HEMOGLOBIN 24.7 pg (27.0-33.0); MEAN CORPUSCULAR HGB CONC 31.7 g/dl (32.0-36.5); MEAN CORPUSCULAR VOLUME 77.9 fl (80.0-96.0); PLATELET COUNT, AUTOMATED 269 10^3/uL (150-450); WHITE BLOOD COUNT 8.5 10^3/uL (4.0-10.0)
[2024-01-08 09:11] LABS: GLOMERULAR FILTRATION RATE 55.7 (>32); MAGNESIUM LEVEL 1.6 MG/DL (1.8-2.4); POTASSIUM SERUM 4.2 MMOL/L (3.5-5.1)
[2024-01-08 12:24] VITALS: BP 139/64; TEMP 98.4; O2SAT 98
[2024-01-08] MEDS ORDERED: MUCI600T31 PO (14:17)
[2024-01-08] MEDS ORDERED: OXYC-517 PO (14:17)
[2024-01-08] MEDS ORDERED: XARE15TA PO (14:17)
[2024-01-08] MEDS ORDERED: AMOX875T2 PO (14:17)
[2024-01-08] MEDS ORDERED: PRED20TA PO (14:17)
[2024-01-08] MEDS ORDERED: PANT40TA29 PO (14:17)
[2024-01-08] MEDS ORDERED: AUGMENTIN 500MG TAB PO SCH (21:00)
[2024-01-09] MEDS ORDERED: predniSONE 20 MG TAB PO SCH (09:00)
== END 2024-01-08 15:18 | DRG 291 ==
LOC: M MSPAV 12:06 → M ICU 01-07 01:51 → M MS4PR 01-07 12:20
PROVIDERS: ADMIT General Practice; ATTEND Family Medicine
DX: I11.0 Hypertensive heart disease with heart failure (principal); J18.9 Pneumonia, unspecified organism; J96.01 Acute respiratory failure with hypoxia; I48.91 Unspecified atrial fibrillation; G47.33 Obstructive sleep apnea (adult) (pediatric); E03.9 Hypothyroidism, unspecified; M81.0 Age-related osteoporosis without current pathological fracture; J44.9 Chronic obstructive pulmonary disease, unspecified; E55.9 Vitamin D deficiency, unspecified; Z79.899 Other long term (current) drug therapy; I50.9 Heart failure, unspecified